=== PATIENT | male | born 1955 | race Caucasian/White ===

== ENCOUNTER → 2016-12-16 | Outpatient (CLI) | payer OTHER ==
[2016-12-16 17:30] LABS: BASO % 0.4 %; BASO ABS # 0.03 K/uL (0-0.2); COMPLETE YES; EOS % 1.9 %; HEMATOCRIT 46.6 % (42-52); IG% 0.1 %; LYMPH % 32.3 %; LYMPH ABS # 2.62 K/uL (1.2-3.4); MEAN CELL VOLUME 95.7 fL (80-100); MEAN CORPUSCULAR HEMOGLOBIN 33.1 pg (25-34); MEAN CORPUSCULAR HGB CONC 34.5 g/dl (32-36); MEAN PLATELET VOLUME 11.2 fL (7.4-10.4); MONO % 8.9 %; NEUT % 56.4 %; PLATELET COUNT 197 K/uL (130-400); RED BLOOD COUNT 4.87 M/uL (4.7-6.1)
[2016-12-16 18:11] LABS: ALT/SGPT 34 U/L (12-78); AST/SGOT 19 U/L (15-37); BLOOD UREA NITROGEN 22 mg/dl (7-18); BUN/CREATININE RATIO 18.2 (10-20); CALCIUM 8.8 mg/dl (8.5-10.1); CARBON DIOXIDE 31 mmol/L (21-32); CHLORIDE 103 mmol/L (98-107); CHOLESTEROL 144 mg/dl (0-200); GLUCOSE 92 mg/dl (70-99); POTASSIUM 4.3 mmol/L (3.5-5.1); SODIUM 142 mmol/L (136-145)
[2016-12-16 18:22] LABS: ALB/GLOB RATIO 1.2 (0.9-2); ALKALINE PHOSPHATASE 104 U/L (45-117); CHOLESTEROL/HDL RATIO 3.6; HDL CHOLESTEROL 40 mg/dl; LDL CHOLESTEROL CALCULATED 64 mg/dl; TRIGLYCERIDES 201 mg/dl (0-150); VERY LOW DENSITY LIPOPROT CALC 40 mg/dl
== END | disposition home or self-care (01) ==
LOC: C.LABPBG 12:55
PROVIDERS: ATTEND Family Medicine
DX: J44.1 Chronic obstructive pulmonary disease with (acute) exacerbation (principal)

== ENCOUNTER → 2017-09-11 | Outpatient (CLI) | payer OTHER ==
[2017-09-11 12:24] LABS: HEMATOCRIT 50.1 % (42-52); MEAN CELL VOLUME 95.8 fL (80-100); MEAN CORPUSCULAR HEMOGLOBIN 33.1 pg (25-34); MEAN CORPUSCULAR HGB CONC 34.5 g/dl (32-36); MEAN PLATELET VOLUME 10.9 fL (7.4-10.4); PLATELET COUNT 213 K/uL (130-400); RED BLOOD COUNT 5.23 M/uL (4.7-6.1); WHITE BLOOD COUNT 7.66 K/uL (4.8-10.8)
[2017-09-11 13:11] LABS: LYME DISEASE AB IGG NEG (NEG); LYME DISEASE AB IGM NEG (NEG)
[2017-09-11 13:41] LABS: ALB/GLOB RATIO 0.9 (0.9-2); ALKALINE PHOSPHATASE 97 U/L (45-117); ALT/SGPT 26 U/L (12-78); AST/SGOT 18 U/L (15-37); BLOOD UREA NITROGEN 19 mg/dl (7-18); CALCIUM 8.7 mg/dl (8.5-10.1); CARBON DIOXIDE 30 mmol/L (21-32); CHLORIDE 103 mmol/L (98-107); CHOLESTEROL 146 mg/dl (0-200); CHOLESTEROL/HDL RATIO 3.7; GLUCOSE 101 mg/dl (70-99); HDL CHOLESTEROL 40 mg/dl; LDL CHOLESTEROL CALCULATED 70 mg/dl; SODIUM 139 mmol/L (136-145); TRIGLYCERIDES 179 mg/dl (0-150); VERY LOW DENSITY LIPOPROT CALC 36 mg/dl
== END | disposition home or self-care (01) ==
LOC: C.LABPBG 08:55
PROVIDERS: ATTEND Family Medicine
DX: J44.1 Chronic obstructive pulmonary disease with (acute) exacerbation (principal); E78.00 Pure hypercholesterolemia, unspecified; R53.81 Other malaise; Z12.5 Encounter for screening for malignant neoplasm of prostate; S30.860A Insect bite (nonvenomous) of lower back and pelvis, initial encounter; X58.XXXA Exposure to other specified factors, initial encounter

== ENCOUNTER 2021-12-03 01:51 | Inpatient (IN) ==
[2021-12-03] MEDS ORDERED: dexAMETHasone**PF** 10 MG/ML VIAL IV ONE (01:59)
--- NOTE | 2021-12-03 02:05 | Emergency Department Note ---
History of Present Illness General Chief complaint: Shortness of Breath/Dyspnea Stated complaint: SOB Time Seen by Provider: 12/03/21 01:59 History of Present Illness 66-year-old male presents emergency department via EMS reportedly with a complaint of shortness of breath that started a few days ago. Patient has a history of COPD he is a prior smoker states that he wears 4 L of oxygen at home. Patient called EMS due to increased work of breathing. Patient states that he was at [facility] 2 days ago and he states "" they did nothing. Patient does not know if he is COVID-positive, he is unvaccinated, he states cough shortness of breath dyspnea on exertion. There are no other mitigating or alleviating factors Home Medications Medication Instructions Recorded Confirmed Type albuterol sulfate 90 mcg/actuation 2 puff INHALATION QID PRN 12/03/21 12/03/21 History aerosol inhaler amlodipine 10 mg tablet 10 mg PO DAILY 12/03/21 12/03/21 History dexamethasone 2 mg tablet 6 mg PO DAILY 12/03/21 12/03/21 History fluticasone 100 mcg-salmeterol 50 1 ea INHALATION BID 12/03/21 12/03/21 History mcg/dose blistr powdr for inhalation hydrocodone 10 mg-acetaminophen 1 tab PO TID PRN 12/03/21 12/03/21 History 325 mg tablet losartan 100 mg tablet 100 mg PO DAILY 12/03/21 12/03/21 History omeprazole 40 mg capsule,delayed 40 mg PO DAILY 12/03/21 12/03/21 History release Allergies Allergy/AdvReac Type Severity Reaction Status Date / Time Penicillins Allergy Severe Anaphylaxis Verified 12/03/21 02:08 Past Med/Surg History Social History Smoking Status: Former smoker Tobacco Type: Cigarettes Feels Safe at Home: Yes Review of Systems A total of 10 systems reviewed and were otherwise negative Constitutional: no body aches Respiratory: + dyspnea Cardiovascular: + dyspnea Physical Exam Vital Signs Vital Signs - 24 hr 12/03/21 02:07 12/03/21 03:24 12/03/21 04:36 Temperature 36.8 C Temperature Source Oral Pulse Rate 116 H Pulse Rate [Right] 112 H 112 H Pulse Rhythm Regular Pulse Rhythm [Right] Regular Pulse Strength Normal Pulse Strength [Right] Normal Respiratory Rate 16 Respiratory Effort / Characteristics Non-Labored Spontaneous Non-Labored Spontaneous Non-Labored Spontaneous Respiratory Depth Normal Normal Normal Blood Pressure 141/101 H Blood Pressure [Right Arm] 164/114 H 138/106 H Blood Pressure Mean 114 Blood Pressure Mean [Right Arm] 130 116 Blood Pressure Position Sitting Blood Pressure Position [Right Arm] Lying Pulse Oximetry 94 94 92 Oxygen Delivery Method Nasal Cannula Nasal Cannula Nasal Cannula Oxygen Flow Rate 4 4 4 Sepsis Recent Fever Within 48 Hours No Sepsis New/Unexplained Change in Mental Status N/A Sepsis Action Taken by Nursing Physician Notified VITAL SIGNS - Vital signs and nursing notes were reviewed. GENERAL -66-year-old male appearing his stated age who is in no acute distress. Communicates well with provider and answers questions appropriately. SKIN - Without rashes. HEAD - NC/AT. EYES - PERRL with EOMI bilaterally. Sclera anicteric. Palpebral conjunctiva pink and moist with no injection noted. EARS - No deformities of external structures noted on gross examination bilaterally. NOSE - Midline and without cyanosis. No epistaxis or purulent drainage noted. Septum midline without deviation or septal hematoma noted. MOUTH/OROPHARYNX - Without perioral cyanosis. NECK - Neck with FROM. Supple to palpation. No nuchal rigidity. LUNGS - Chest wall symmetric without accessory muscle use, intercostals retractions, or central cyanosis. Rhonchi bilaterally, increased respiratory rate; able to speak in full sentences CARDIAC -tachycardic no murmur, rubs, or gallops appreciated. ABDOMEN - Abdominal contour soft without pulsations or visible masses. BS normoactive all four quadrants. No tenderness, palpable masses, hepa tosplenomegaly, or ascites noted. EXTREMITIES - No clubbing or peripheral cyanosis. Bilateral lower extremity edema, calves are nontender. +5/5 strength noted in UE/LE bilaterally. NEUROLOGIC - Cranial nerves II through XII grossly intact. Sensory intact to light touch throughout. PSYCH - A&Ox3 and cooperates fully with examiner. Pt is very pleasant and interacts well with examiner. Course Reevaluation(s) Reevaluation #1: Patient was started on oxygen at 4 L, IV Decadron, patient's COVID positive, patient CT angio was negative for PE. The case was discussed with the [facility] hospitalist Dr. Bush for admit Administered Medications Discontinued Medications Dexamethasone Sodium Phosphate (DexamethasonePf 10 Mg/Ml Vial) 10 mg IV NOW ONE Stop: 12/03/21 02:00 Last Admin: 12/03/21 02:30 Dose: 10 mg Documented by: [id number] Ioversol (Optiray 320 125ml) 117 ml IV ONCE ONE Stop: 12/03/21 03:17 Last Admin: 12/03/21 03:16 Dose: 117 ml Documented by: [id number] Critical Care Time Critical Care Time: Yes Total Critical Care Time: 35 Critical care time for patient with hypoxic COVID-pneumonia with multiple reevaluations, discussion with hospitalist, discussion with nursing, review of old records, possibility for impending cardiorespiratory compromise Medical Decision Making Medical Records Attestation: I reviewed the patient's medical records. Laboratory Data Result diagrams: 12/03/21 02:01 12/03/21 02:01 Lab Results 12/03/21 12/03/21 12/03/21 Range/Units 02:01 02:01 02:01 WBC 19.21 H (4.8-10.8) K/uL RBC 5.26 (4.7-6.1) M/uL Hgb 15.9 (14.0-18.0) g/dL Hct 47.4 (42-52) % MCV 90.1 (80-100) fL MCH 30.2 (25-34) pg MCHC 33.5 (32-36) g/dL RDW Std Deviation 48.5 H (36.4-46.3) fL RDW Coeff of Severino 14.8 H (11.5-14.5) % Plt Count 361 (130-400) K/uL MPV 9.5 (7.4-10.4) fL Immature Gran % (Auto) 0.4 % Neut % (Auto) 81.2 % Lymph % (Auto) 11.1 % [place] % (Auto) 7.2 % Eos % (Auto) 0.0 % Baso % (Auto) 0.1 % Neut # (Auto) 15.59 H (1.4-6.5) K/uL Lymph # (Auto) 2.13 (1.2-3.4) K/uL [place] # (Auto) 1.39 H (0.11-0.59) K/uL Eos # (Auto) 0.00 (0-0.5) K/uL Baso # (Auto) 0.02 (0-0.2) K/uL Immature Gran # (Auto) 0.08 H (0.00-0.02) K/uL PT 10.5 (9.0-12.0) Seconds INR 1.0 (0.9-1.1) APTT 23.4 (21.0-31.0) Seconds PTT Ratio 0.9 D-Dimer 2440 H* (0-500) ug/L FEU VBG pH (7.36-7.41) VBG pCO2 (38-50) mmHg VBG pO2 mmHg VBG HCO3 mmol/L VBG O2 Saturation % VBG Base Excess mEq/L Barometric Pressure mm/Hg Sodium 136 (136-145) mmol/L Potassium 4.8 (3.5-5.1) mmol/L Chloride 100 (98-107) mmol/L Carbon Dioxide 25 (21-32) mmol/L Anion Gap 11 (3-11) BUN 37 H (6-23) mg/dl Creatinine 1.02 (0.6-1.4) mg/dl Est Cr Clr Drug Dosing 82.7 ml/min Est GFR ( Amer) 89.6 ml/min Est GFR (Non-Af Amer) 77.3 ml/min BUN/Creatinine Ratio 36.3 H (10-20) Glucose 119 H (70-99(Fasting)) mg/dl Calcium 8.8 (8.5-10.1) mg/dl Total Bilirubin 0.7 (0.2-1.0) mg/dl AST 91 H (13-39) U/L ALT 106 H (7-52) U/L Alkaline Phosphatase 149 H (34-104) U/L Troponin I 0.03 (0-0.04) ng/ml Total Protein 7.8 (6.0-8.3) gm/dl Albumin 3.8 (3.4-5.0) gm/dl Globulin 4.0 (2.5-4.0) gm/dl Albumin/Globulin Ratio 1.0 (0.9-2) Urine Color Urine Appearance (Clear) Urine pH (4.5-7.5) Ur Specific [place] (1.000-1.030) Urine Protein (Negative) Urine Glucose (UA) (Negative) Urine Ketones (Negative) Urine Blood (Negative) Urine Nitrite (Negative) Urine Bilirubin (Negative) Urine Urobilinogen (Negative) Ur Leukocyte Esterase (Negative) Urine WBC (Auto) (0-5) /hpf Urine RBC (Auto) (0-4) /hpf U Hyaline Cast (Auto) (0-5) /lpf U Epithel Cells (Auto) (0-5) /lpf Urine Bacteria (Auto) (Negative) SARS-CoV-2 (PCR) (Negative) Influenza Type A (PCR) (Neg) Influenza Type B (PCR) (Neg) RSV (RT-PCR) (Neg) 12/03/21 12/03/21 12/03/21 Range/Units 02:01 02:42 03:34 WBC (4.8-10.8) K/uL RBC (4.7-6.1) M/uL Hgb (14.0-18.0) g/dL Hct (42-52) % MCV (80-100) fL MCH (25-34) pg MCHC (32-36) g/dL RDW Std Deviation (36.4-46.3) fL RDW Coeff of Severino (11.5-14.5) % Plt Count (130-400) K/uL MPV (7.4-10.4) fL Immature Gran % (Auto) % Neut % (Auto) % Lymph % (Auto) % [place] % (Auto) % Eos % (Auto) % Baso % (Auto) % Neut # (Auto) (1.4-6.5) K/uL Lymph # (Auto) (1.2-3.4) K/uL [place] # (Auto) (0.11-0.59) K/uL Eos # (Auto) (0-0.5) K/uL Baso # (Auto) (0-0.2) K/uL Immature Gran # (Auto) (0.00-0.02) K/uL PT (9.0-12.0) Seconds INR (0.9-1.1) APTT (21.0-31.0) Seconds PTT Ratio D-Dimer (0-500) ug/L FEU VBG pH 7.44 H (7.36-7.41) VBG pCO2 46 (38-50) mmHg VBG pO2 25 mmHg VBG HCO3 31 mmol/L VBG O2 Saturation < 60.0 % VBG Base Excess 5.9 mEq/L Barometric Pressure 709.3 mm/Hg Sodium (136-145) mmol/L Potassium (3.5-5.1) mmol/L Chloride (98-107) mmol/L Carbon Dioxide (21-32) mmol/L Anion Gap (3-11) BUN (6-23) mg/dl Creatinine (0.6-1.4) mg/dl Est Cr Clr Drug Dosing ml/min Est GFR ( Amer) ml/min Est GFR (Non-Af Amer) ml/min BUN/Creatinine Ratio (10-20) Glucose (70-99(Fasting)) mg/dl Calcium (8.5-10.1) mg/dl Total Bilirubin (0.2-1.0) mg/dl AST (13-39) U/L ALT (7-52) U/L Alkaline Phosphatase (34-104) U/L Troponin I (0-0.04) ng/ml Total Protein (6.0-8.3) gm/dl Albumin (3.4-5.0) gm/dl Globulin (2.5-4.0) gm/dl Albumin/Globulin Ratio (0.9-2) Urine Color Yellow Urine Appearance Clear (Clear) Urine pH 5.5 (4.5-7.5) Ur Specific [place] 1.035 H (1.000-1.030) Urine Protein 2+ H (Negative) Urine Glucose (UA) Negative (Negative) Urine Ketones Trace H (Negative) Urine Blood 1+ H (Negative) Urine Nitrite Negative (Negative) Urine Bilirubin Negative (Negative) Urine Urobilinogen Negative (Negative) Ur Leukocyte Esterase Negative (Negative) Urine WBC (Auto) 1-5 (0-5) /hpf Urine RBC (Auto) 0-4 (0-4) /hpf U Hyaline Cast (Auto) 5-10 H (0-5) /lpf U Epithel Cells (Auto) 10-20 H (0-5) /lpf Urine Bacteria (Auto) Negative (Negative) SARS-CoV-2 (PCR) POSITIVE A* (Negative) Influenza Type A (PCR) Negative (Neg) Influenza Type B (PCR) Negative (Neg) RSV (RT-PCR) Negative (Neg) Imaging Data Attestation: I personally reviewed and interpreted this imaging study as follows: My Impression: Chest x-ray interpreted by me bilateral interstitial infiltrates Radiologist's Impression: Preliminary Findings Only See Final Report For Complete Findings CTA CHEST: Innumerable nodules within the lungs (more than 50) which may be due to sequela of metastatic disease. Sequela of infection also possible. Consider PET imaging or tissue sampling. Respiratory motion affect mildly limits evaluation for small subsegmental emboli. In spite of this, no visualized pulmonary emboli within the pulmonary outflow tract or proximal vessels. Pericardial effusion measuring up to 0.7 cm in thickness. Left adrenal nodule is really up to 2.0 cm which may be also metastatic in nature. ECG Data Attestation: I personally reviewed and interpreted this ECG as follows: Additional Comments: EKG interpreted by me sinus tachycardia rate of 118 poor R wave progression in the precordium no obvious ST segment elevation or depression MDM Narrative Medical decision making differential diagnosis pneumonia COPD COVID CHF anxiety Impression & Plan Pneumonia due to COVID-19 virus, Hypoxia Discharge Plan Visit Data Chief Complaint: Shortness of Breath/Dyspnea Stated Complaint: SOB ED Provider: Abdias Larson Discharge Problem: Pneumonia due to COVID-19 virus, Hypoxia Patient Disposition: Being Evaluated by Hospitalist Forms Stand Alone Forms: My [facility] Prescriptions Prescriptions: No Action hydrocodone-acetaminophen 10-325 mg tablet 1 tab PO TID PRN (Reason: Pain) RF: 0 omeprazole 40 mg capsule,delayed release(DR/EC) 40 mg PO DAILY RF: 0 amlodipine 10 mg tablet 10 mg PO DAILY RF: 0 dexamethasone 2 mg tablet 6 mg PO DAILY RF: 0 fluticasone propion-salmeterol 100-50 mcg/dose blister with device 1 ea INHALATION BID RF: 0 albuterol sulfate 90 mcg/actuation HFA aerosol inhaler 2 puff INHALATION QID PRN (Reason: Shortness Of Breath Or Wheezing) RF: 0 losartan 100 mg tablet 100 mg PO DAILY RF: 0 Referrals Referrals: Avery Seay [Primary Care Provider] -
[2021-12-03 02:10] LABS: Hematocrit (blood only) 47.4 % (42-52); Hemoglobin 15.9 g/dL (14.0-18.0); Mean Corpuscular Hemoglobin 30.2 pg (25-34); Mean Corpuscular Hgb Conc 33.5 g/dL (32-36); Mean Corpuscular Volume 90.1 fL (80-100); Mean Platelet Volume 9.5 fL (7.4-10.4); Platelet Count 361 K/uL (130-400); RDW Coefficient of Variation 14.8 % (11.5-14.5); RDW Standard Deviation 48.5 fL (36.4-46.3); Red Blood Count 5.26 M/uL (4.7-6.1); White Blood Count 19.21 K/uL (4.8-10.8)
[2021-12-03 02:21] LABS: Partial Thromboplastin Ratio 0.9; Partial Thromboplastin Time 23.4 Seconds (21.0-31.0); Prothrombin Time 10.5 Seconds (9.0-12.0)
[2021-12-03 02:23] LABS: D Dimer 2440 ug/L FEU (0-500)
[2021-12-03 02:26] LABS: Basophils # (auto) 0.02 K/uL (0-0.2); Basophils % (auto) 0.1 %; Immature Granulocytes # (auto) 0.08 K/uL (0.00-0.02); Immature Granulocytes % (auto) 0.4 %; Lymphocytes # (auto) 2.13 K/uL (1.2-3.4); Lymphocytes % (auto) 11.1 %; Monocytes # (auto) 1.39 K/uL (0.11-0.59); Monocytes % (auto) 7.2 %; Neutrophils # (auto) 15.59 K/uL (1.4-6.5); Neutrophils % (auto) 81.2 %
[2021-12-03 02:32] LABS: Troponin I 0.03 ng/ml (0-0.04)
[2021-12-03 02:39] LABS: Albumin Level 3.8 gm/dl (3.4-5.0); BUN Creatinine Ratio 36.3 (10-20); Bilirubin,Total 0.7 mg/dl (0.2-1.0); Calcium 8.8 mg/dl (8.5-10.1); Creatinine Clr Calc Pharmacy 82.7 ml/min; Est GFR (African American) 89.6 ml/min; Est GFR (Non-African American) 77.3 ml/min; Potassium 4.8 mmol/L (3.5-5.1); Total Protein 7.8 gm/dl (6.0-8.3)
[2021-12-03 02:58] LABS: Base Excess VBG 5.9 mEq/L; HCO3 VBG 31 mmol/L; PCO2 VBG 46 mmHg (38-50); PO2 VBG 25 mmHg; pH VBG 7.44 (7.36-7.41)
[2021-12-03 02:58] LABS: Influenza A virus by PCR Negative (Neg); Influenza B virus by PCR Negative (Neg); RSV by PCR Negative (Neg)
[2021-12-03 03:07] LABS: Oxygen Saturation VBG < 60.0 %
[2021-12-03 03:09] LABS: SARS CoV2 RNA(COVID-19) InHosp POSITIVE (Negative)
[2021-12-03] MEDS ORDERED: OPTIRAY 320 125ml IV ONE (03:16)
[2021-12-03 04:01] LABS: Appearance Urine Clear (Clear); Bacteria Urine Automated Negative (Negative); Bilirubin Urine Negative (Negative); Blood Urine 1+ (Negative); Color Urine Yellow; Glucose Urine UA Negative (Negative); Ketones Urine Trace (Negative); Leukocyte Esterase Urine Negative (Negative); Nitrite Urine Negative (Negative); Protein Urine 2+ (Negative); RBC Urine Automated 0-4 /hpf (0-4); Specific Gravity Urine 1.035 (1.000-1.030); Urobilinogen Urine Negative (Negative); pH Urine 5.5 (4.5-7.5)
[2021-12-03] MEDS ORDERED: REMDESIVIR 200 MG in SODIUM CHLORIDE 0.9% 210 ML IV STA (05:06)
--- NOTE | 2021-12-03 05:22 | History & Physical Report ---
Date of Service December 03, 2021 Assessment & Plan (1) Pneumonia due to COVID-19 virus: Plan: 66yo male with history of COPD presenting with Covid-19 PNA, hypoxic per EMS to 80's. Patient wears 4L O2 at home at baseline. He is unvaccinated against Covid-19 -Presently breathing comfortably on 4L NC with saturation of 92%. Patient had a prescription for oral Dexamethasone in the system - uncertain who prescribed this -Admit to medical with telemetry -Maintain isolation precautions -Dexamethasone 6mg IV daily -Lovenox 90mg BID -Remdesivir per protocol -Mucinex, Tylenol, Zofran, Tessalon as needed -Supplemental O2 as needed (2) Pulmonary nodules: Plan: Noted on CTA. Patient has no knowledge of prior pulmonary nodules. I told him that further workup will be needed after the acute issues resolve -Outpatient workup (3) Pericardial effusion: Plan: Patient HD stable, no JVD, normal heart tones. Do not suspect tamponade. Possibly malignant? Question if patient has newly discovered metastatic disease based on lung nodules and adrenal nodule? -Monitor for now -Further workup after acute Covid resolves (4) COPD (chronic obstructive pulmonary disease): Plan: Patient with COPD, on home O2 4L at baseline. Some mild wheezing appreciated on exam -Albuterol PRN -Combivent PRN -Steroids as above (5) Hypertension: Plan: Chronic. BP mildly elevated at 138/106 -Continue Losartan and Amlodipine Plan: F/E/N - Heplock. Electrolytes WNL. Regular diet as tolerated Ppx - Lovenox 90 BID - patient with Covid-19, possible undiagnosed malignancy and markedly elevated D-dimer Code - DNR/DNI per discussion Dispo - Admit to medical with telemetry History of Present Illness Chief Complaint: Covid-19 Primary Care Provider: Avery Seay Travis Shay is a 66yo male with history of HTN and COPD presenting with Covid-19 PNA. Patient states he has not been feeling well for the last week. He complains of cough, SOB, AGUIRRE, weakness, congestion. He denies fever, abdominal pain, nausea, vomiting, diarrhea or constipation. Patient uses 4L of O2 at home as baseline Patient is not vaccinated against Covid-19 He was seen at [facility] yesterday and states that he was treated poorly so he left. Uncertain if workup was complete. Patient hypoxic by EMS to 80's Presently he is tearful and anxious stating "I don't want to ...I wish I co uld just breathe". He has no additional complaints. Tachycardic and hypertensive, saturating 92% presently on 4L NC ER Course: Dexamethasone 10mg IV Allergies Allergy/AdvReac Type Severity Reaction Status Date / Time Penicillins Allergy Severe Anaphylaxis Verified 12/03/21 02:08 Home Medications Medication Instructions Recorded Confirmed Type albuterol sulfate 90 mcg/actuation 2 puff INHALATION QID PRN 12/03/21 12/03/21 History aerosol inhaler amlodipine 10 mg tablet 10 mg PO DAILY 12/03/21 12/03/21 History dexamethasone 2 mg tablet 6 mg PO DAILY 12/03/21 12/03/21 History fluticasone 100 mcg-salmeterol 50 1 ea INHALATION BID 12/03/21 12/03/21 History mcg/dose blistr powdr for inhalation hydrocodone 10 mg-acetaminophen 1 tab PO TID PRN 12/03/21 12/03/21 History 325 mg tablet losartan 100 mg tablet 100 mg PO DAILY 12/03/21 12/03/21 History omeprazole 40 mg capsule,delayed 40 mg PO DAILY 12/03/21 12/03/21 History release Past Med/Surg History Medical History (Updated 12/03/21 @ 05:15 by Christine Bush DO) COPD (chronic obstructive pulmonary disease) Hypertension Surgical History (Updated 12/03/21 @ 05:11 by Christine Bush DO) No significant past surgical history Family History (Updated 12/03/21 @ 05:11 by Christine Bush DO) Other Family history non-contributory Social History Smoking Status: Former smoker Tobacco Type: Cigarettes Feels Safe at Home: Yes Review of Systems Review of Systems: All systems reviewed & are unremarkable except as noted in HPI & below Physical Exam Physical Exam: General: patient anxious, NAD, chronically ill in appearance, AA&O x 4, appears older than stated age Skin: warm, dry, intact, no rashes or lesions HEENT: NC/AT, PERRL, EOMI, anicteric sclera, conjunctiva without injection, external ear normal to inspection and nontender, nares patent, moist mucus membranes, dentition intact, no oropharyngeal lesions, neck supple, trachea midline, no LAD, no thyromegaly, no JVD Heart: +S1/S2, regular, tachycardic, no m/r/g Lungs: equal air entry bilaterally, faint scattered end expiratory wheeze Abd: +BS, soft, midly tender with deep palpation without rebound/guarding or peritoneal signs, no masses/organomegaly/ascites Ext: warm, 2+ pulses in UE/LE bilaterally, no clubbing/cyanosis or edema Neuro: nonfocal, patient AA&O x 4, speech intact, no facial droop, moving all extremities on command with equal strength 5/5 Results & Data Results & Data ([facility]) Vital Signs (Past 12 Hours) Vital Signs Temp Pulse Pulse Resp BP BP Pulse Ox 12/03/21 04:36 112 H 16 138/106 H 92 12/03/21 03:24 112 H 22 164/114 H 94 12/03/21 02:07 36.8 C 116 H 22 141/101 H 94 Laboratory Results Laboratory Results WBC 19.21 K/uL (4.8-10.8) H 12/03/21 02:01 RBC 5.26 M/uL (4.7-6.1) 12/03/21 02:01 Hgb 15.9 g/dL (14.0-18.0) 12/03/21 02:01 Hct 47.4 % (42-52) 12/03/21 02:01 MCV 90.1 fL (80-100) 12/03/21 02:01 MCH 30.2 pg (25-34) 12/03/21 02:01 MCHC 33.5 g/dL (32-36) 12/03/21 02:01 RDW Std Deviation 48.5 fL (36.4-46.3) H 12/03/21 02:01 RDW Coeff of Severino 14.8 % (11.5-14.5) H 12/03/21 02:01 Plt Count 361 K/uL (130-400) 12/03/21 02:01 MPV 9.5 fL (7.4-10.4) 12/03/21 02:01 Immature Gran % (Auto) 0.4 % 12/03/21 02:01 Neut % (Auto) 81.2 % 12/03/21 02:01 Lymph % (Auto) 11.1 % 12/03/21 02:01 [place] % (Auto) 7.2 % 12/03/21 02:01 Eos % (Auto) 0.0 % 12/03/21 02:01 Baso % (Auto) 0.1 % 12/03/21 02:01 Neut # (Auto) 15.59 K/uL (1.4-6.5) H 12/03/21 02:01 Lymph # (Auto) 2.13 K/uL (1.2-3.4) 12/03/21 02:01 [place] # (Auto) 1.39 K/uL (0.11-0.59) H 12/03/21 02:01 Eos # (Auto) 0.00 K/uL (0-0.5) 12/03/21 02:01 Baso # (Auto) 0.02 K/uL (0-0.2) 12/03/21 02:01 Immature Gran # (Auto) 0.08 K/uL (0.00-0.02) H 12/03/21 02:01 PT 10.5 Seconds (9.0-12.0) 12/03/21 02:01 INR 1.0 (0.9-1.1) 12/03/21 02:01 APTT 23.4 Seconds (21.0-31.0) 12/03/21 02:01 PTT Ratio 0.9 12/03/21 02:01 D-Dimer 2440 ug/L FEU (0-500) H* 12/03/21 02:01 VBG pH 7.44 (7.36-7.41) H 12/03/21 02:42 VBG pCO2 46 mmHg (38-50) 12/03/21 02:42 VBG pO2 25 mmHg 12/03/21 02:42 VBG HCO3 31 mmol/L 12/03/21 02:42 VBG O2 Saturation < 60.0 % 12/03/21 02:42 VBG Base Excess 5.9 mEq/L 12/03/21 02:42 Barometric Pressure 709.3 mm/Hg 12/03/21 02:42 Sodium 136 mmol/L (136-145) 12/03/21 02:01 Potassium 4.8 mmol/L (3.5-5.1) 12/03/21 02:01 Chloride 100 mmol/L (98-107) 12/03/21 02:01 Carbon Dioxide 25 mmol/L (21-32) 12/03/21 02:01 Anion Gap 11 (3-11) 12/03/21 02:01 BUN 37 mg/dl (6-23) H 12/03/21 02:01 Creatinine 1.02 mg/dl (0.6-1.4) 12/03/21 02:01 Est Cr Clr Drug Dosing 82.7 ml/min 12/03/21 02:01 Est GFR ( Amer) 89.6 ml/min 12/03/21 02:01 Est GFR (Non-Af Amer) 77.3 ml/min 12/03/21 02:01 BUN/Creatinine Ratio 36.3 (10-20) H 12/03/21 02:01 Glucose 119 mg/dl (70-99(Fasting)) H 12/03/21 02:01 Calcium 8.8 mg/dl (8.5-10.1) 12/03/21 02:01 Total Bilirubin 0.7 mg/dl (0.2-1.0) 12/03/21 02:01 AST 91 U/L (13-39) H 12/03/21 02:01 ALT 106 U/L (7-52) H 12/03/21 02:01 Alkaline Phosphatase 149 U/L (34-104) H 12/03/21 02:01 Troponin I 0.03 ng/ml (0-0.04) 12/03/21 02:01 Total Protein 7.8 gm/dl (6.0-8.3) 12/03/21 02:01 Albumin 3.8 gm/dl (3.4-5.0) 12/03/21 02:01 Globulin 4.0 gm/dl (2.5-4.0) 12/03/21 02:01 Albumin/Globulin Ratio 1.0 (0.9-2) 12/03/21 02:01 Urine Color Yellow 12/03/21 03:34 Urine Appearance Clear (Clear) 12/03/21 03:34 Urine pH 5.5 (4.5-7.5) 12/03/21 03:34 Ur Specific [place] 1.035 (1.000-1.030) H 12/03/21 03:34 Urine Protein 2+ (Negative) H 12/03/21 03:34 Urine Glucose (UA) Negative (Negative) 12/03/21 03:34 Urine Ketones Trace (Negative) H 12/03/21 03:34 Urine Blood 1+ (Negative) H 12/03/21 03:34 Urine Nitrite Negative (Negative) 12/03/21 03:34 Urine Bilirubin Negative (Negative) 12/03/21 03:34 Urine Urobilinogen Negative (Negative) 12/03/21 03:34 Ur Leukocyte Esterase Negative (Negative) 12/03/21 03:34 Urine WBC (Auto) 1-5 /hpf (0-5) 12/03/21 03:34 Urine RBC (Auto) 0-4 /hpf (0-4) 12/03/21 03:34 U Hyaline Cast (Auto) 5-10 /lpf (0-5) H 12/03/21 03:34 U Epithel Cells (Auto) 10-20 /lpf (0-5) H 12/03/21 03:34 Urine Bacteria (Auto) Negative (Negative) 12/03/21 03:34 SARS-CoV-2 (PCR) POSITIVE (Negative) A* 12/03/21 02:01 Influenza Type A (PCR) Negative (Neg) 12/03/21 02:01 Influenza Type B (PCR) Negative (Neg) 12/03/21 02:01 RSV (RT-PCR) Negative (Neg) 12/03/21 02:01 Diagnostic Findings Chest CTA - Per STAT rad - Innumerable nodules within the lungs (more than 50) which may be due to sequela of metastatic disease. Sequela of infection also possible. Consider PET imaging or tissue sampling. No visualized pulmonary emboli within the pulmonary outflow tract or proximal vessels. Pericardial effusion measuring up to 0.7cm in thickness. Left adrenal nodule is really up to 2cm which may be also metastatic in nature. Code Status & VTE Plan Code Status DNR/DNI per discussion with patient VTE Prophylaxis Plan VTE Prophylaxis will be ordered: Yes PG Care Time/CCT Total # of Minutes Spent Total Time Spent with Patient: Total time spent is greater than 50% in coordination of care (as documented) at patient's floor/unit and/or counseling patient: Coding Level of Care Code 85059 Initial Inpt Care Lvl 3 Diagnoses Pulmonary nodules R91.8 Hypertension I10 COPD (chronic obstructive pulmonary disease) J44.9 Pneumonia due to COVID-19 virus U07.1; J12.82 Pericardial effusion I31.3
--- NOTE | 2021-12-03 07:43 | XRay Report ---
XR chest 1V portable CLINICAL HISTORY: Dyspnea TECHNIQUE: Single frontal radiograph of the chest was obtained. Comparison: None available at the time of this dictation. FINDINGS: No lines and tubes are seen. The cardiomediastinal silhouette is normal. Bilateral lower lung predomi nant airspace opacities are seen. No evidence of pleural effusion or pneumothorax. IMPRESSION: Bilateral lower lung predominant airspace opacities which may represent atelectasis, pneumonia, and/o r aspiration. ACT 112: Negative or not required by law. Electronically signed by: Flako Evangelista M.D. 12/03/2021 7:42 AM
--- NOTE | 2021-12-03 07:49 | CT Scan Report ---
CT angio chest PE protocol CLINICAL HISTORY: PE TECHNIQUE: Multidetector row helical CT of the chest was performed. Coronal and sagittal reformations were obtained. Coronal and sagittal MIPS were obtained from the axial data set and were submitted fo r review. Automated dose lowering techniques and/or adjustment according to patient size were utiliz ed for this exam. Comparison: Comparison is made to chest one view 12/03/2021 FINDINGS: Lungs and pleura: There are innumerable pulmonary nodules bilaterally. Emphysematous changes are seen . Bronchial wall thickening is noted. Heart and pericardium: Heart size is normal. No pericardial effusion. Vessels: No evidence of pulmonary embolism. Moderate atherosclerotic disease is seen. Mediastinum and tina: Unremarkable. Chest wall and lower neck: Unremarkable. Abdomen: Ill-defined hepatic hypodensity is seen measuring approximately 9 cm in diameter. Cholelithi asis is seen without evidence of cholecystitis. There is a left adrenal nodule measuring approximatel y 2 cm in diameter. Bones: Degenerative changes in the thoracic spine. IMPRESSION: 1. No evidence of pulmonary embolism. 2. Numerous pulmonary nodules and soft tissue lesions in the liver left adrenal gland. Findings are concerning for metastatic disease of unknown primary. If not previously evaluated, PET/CT or tissue s ampling can be considered. ACT 112: Negative or not required by law. Electronically signed by: Flako Evangelista M.D. 12/03/2021 7:48 AM
--- NOTE | 2021-12-03 08:50 | Electrocardiogram Report ---
Test Reason : Blood Pressure : / mmHG Vent. Rate : 118 BPM Atrial Rate : 118 BPM P-R Int : 158 ms QRS Dur : 074 ms QT Int : 306 ms P-R-T Axes : 069 045 069 degrees QTc Int : 428 ms Sinus tachycardia Normal ECG No previous ECGs available Confirmed by Avery Andujar ([id number]) on 12/03/2021 8:49:53 AM Referred By: REFERRED SELF Confirmed By:Avery Andujar
[2021-12-03] MEDS ORDERED: IPRATROPIUM BROMIDE/ALBUTEROL respimat INH INH SCH (09:38)
[2021-12-03] MEDS ORDERED: ONDANSETRON INJ 2 MG/ML 2 ML VIAL IV PRN (09:38)
[2021-12-03] MEDS ORDERED: ACETAMINOPHEN 325 MG TAB PO PRN (09:38)
[2021-12-03] MEDS ORDERED: SODIUM CHLORIDE 0.9% 10ML FLUSH IV SCH (09:38)
[2021-12-03] MEDS ORDERED: ENOXAPARIN 100 MG/1ML SYR SQ SCH (10:15)
[2021-12-03 10:54] LABS: Magnesium 2.3 mg/dl (1.7-2.4)
[2021-12-03 11:17] LABS: Fibrinogen 417 mg/dl (184-400)
[2021-12-03 11:32] LABS: Ferritin 657.3 ng/ml (8-388)
[2021-12-03] MEDS: BENZONATATE 100 MG CAPSULE PO SCH ×3 (11:58→20:15)
[2021-12-03] MEDS: hydrOXYzine HCl 25 MG TAB PO PRN ×2 (11:58→20:15)
[2021-12-03] MEDS: FAMOTIDINE 40 MG TABLET PO SCH (11:59)
[2021-12-03] MEDS: LOSARTAN POTASSIUM 50 MG TAB PO SCH (11:59)
[2021-12-03] MEDS: guaiFENesin 600 MG TABCR PO SCH ×2 (11:59→20:15)
[2021-12-03 12:54] LABS: C Reactive Protein 2.37 mg/dl (0-0.5)
[2021-12-03] MEDS: amLODIPine BESYLATE 5 MG TAB PO SCH (13:16)
--- NOTE | 2021-12-03 13:38 | History & Physical Bridge Note ---
Date of Service December 03, 2021 History & Physical Bridge Note I have examined the patient, reviewed the History & Physical and in the interval since the performance of the History & Physical I have noted the following changes of clinical significance: no changes noted 66yo w/ hx of COPD presenting with Covid-19 pneumonia x 10 days of symptoms. Had some anxiety, now improved with hydroxyzine. First symptoms: 11/23/2021 First tested: 12/03/2021 Vaccinated: No Admission date: 12/03/2021 Admission O2 requirement: 6L (from home 4L NC) Admission CRP: 2.4 Dexamethasone course started: 12/03/2021; End date: 12/12/2021 Remdesivir contraindication: >7 days since symptom onset Tocilizumab/baricitinib contraindication: No need for high-flow oxygen Antibiotics: No lobar pneumonia on CTA on 12/03; procalcitonin normal - None DVT ppx: Lovenox 40 mg SQ daily Breathing treatments: Combivent standing & PRN, Wan Iglesias Presently requiring 6L Oxymask
[2021-12-03] MEDS: IPRATROPIUM BROMIDE HFA INHALER INH SCH ×3 (15:51→19:15)
[2021-12-03] MEDS: ALBUTEROL HFA 8 GM INHALER INH SCH ×3 (15:52→19:15)
[2021-12-04] MEDS: dexAMETHasone 6 MG in SYRINGE 0 ML IV SCH (02:20)
[2021-12-04] MEDS: ALBUTEROL HFA 8 GM INHALER INH SCH (07:28)
[2021-12-04] MEDS: IPRATROPIUM BROMIDE HFA INHALER INH SCH (07:28)
[2021-12-04 07:33] LABS: Basophils # (auto) 0.01 K/uL (0-0.2); Basophils % (auto) 0.1 %; Hematocrit (blood only) 43.2 % (42-52); Hemoglobin 13.9 g/dL (14.0-18.0); Immature Granulocytes # (auto) 0.06 K/uL (0.00-0.02); Immature Granulocytes % (auto) 0.4 %; Lymphocytes # (auto) 1.06 K/uL (1.2-3.4); Lymphocytes % (auto) 7.1 %; Mean Corpuscular Hemoglobin 29.8 pg (25-34); Mean Corpuscular Hgb Conc 32.2 g/dL (32-36); Mean Corpuscular Volume 92.7 fL (80-100); Mean Platelet Volume 9.8 fL (7.4-10.4); Monocytes # (auto) 0.51 K/uL (0.11-0.59); Monocytes % (auto) 3.4 %; Neutrophils # (auto) 13.31 K/uL (1.4-6.5); Platelet Count 415 K/uL (130-400); RDW Coefficient of Variation 15.1 % (11.5-14.5); RDW Standard Deviation 50.9 fL (36.4-46.3); Red Blood Count 4.66 M/uL (4.7-6.1); White Blood Count 14.95 K/uL (4.8-10.8)
[2021-12-04 07:56] LABS: Albumin Level 3.3 gm/dl (3.4-5.0); BUN Creatinine Ratio 33.3 (10-20); Bilirubin Direct 0.1 mg/dl (0-0.2); Bilirubin,Total 0.6 mg/dl (0.2-1.0); Calcium 8.3 mg/dl (8.5-10.1); Creatinine Clr Calc Pharmacy 85.2 ml/min; Est GFR (African American) 92.9 ml/min; Est GFR (Non-African American) 80.2 ml/min; Potassium 4.4 mmol/L (3.5-5.1); Total Protein 6.6 gm/dl (6.0-8.3)
[2021-12-04] MEDS: amLODIPine BESYLATE 5 MG TAB PO SCH (08:13)
[2021-12-04] MEDS: BENZONATATE 100 MG CAPSULE PO SCH ×3 (08:13→20:09)
[2021-12-04] MEDS: ENOXAPARIN INJ 40 MG/0.4 ML SYR SQ SCH (08:14)
[2021-12-04] MEDS: FAMOTIDINE 40 MG TABLET PO SCH (08:14)
[2021-12-04] MEDS: guaiFENesin 600 MG TABCR PO SCH ×2 (08:14→20:10)
[2021-12-04] MEDS: LOSARTAN POTASSIUM 50 MG TAB PO SCH (08:16)
[2021-12-04] MEDS ORDERED: IPRATROPIUM BROMIDE HFA INHALER INH PRN (09:21)
[2021-12-04] MEDS: ALBUTEROL HFA 8 GM INHALER INH PRN (10:05)
[2021-12-04] MEDS ORDERED: REMDESIVIR 100 MG in SODIUM CHLORIDE 0.9% 230 ML IV SCH (12:00)
--- NOTE | 2021-12-04 12:50 | Hospitalist Progress Note ---
Date of Service December 04, 2021 Assessment & Plan (1) Pneumonia due to COVID-19 virus: Plan: First symptoms: 11/23/2021 First tested: 12/03/2021 Vaccinated: No Admission date: 12/03/2021 Admission O2 requirement: 6L (from home 4L NC) Admission CRP: 2.4 Dexamethasone course started: 12/03/2021; End date: 12/12/2021 Remdesivir contraindication: >7 days since symptom onset Tocilizumab/baricitinib contraindication: No need for high-flow oxygen Antibiotics: No lobar pneumonia on CTA on 12/03; procalcitonin normal - None DVT ppx: Lovenox 40 mg SQ daily Breathing treatments: Combivent PRN, Tessalon Perles, guaifenasin Presently requiring 5L Oxymask. (2) Pulmonary nodules: Plan: Noted on CTA. Many nodules concerning for metastases. Patient has no knowledge of prior pulmonary nodules. I told him that further workup will be needed after the acute issues resolve. - Outpatient workup (3) Pericardial effusion: Plan: Patient HD stable, no JVD, normal heart tones. Do not suspect tamponade. Possibly malignant? Question if patient has newly discovered metastatic disease based on lung nodules and adrenal nodule? - Monitor for now - Further workup after acute Covid resolves (4) COPD (chronic obstructive pulmonary disease): Plan: Patient with COPD, on home O2 4L at baseline. No wheezing appreciated on exam today. - Albuterol PRN - Combivent PRN - Steroids as above (5) Hypertension: Plan: Chronic. BP today is 105/75. - Continue losartan and amlodipine Admission and Anticipated Discharge Date Admission Date: December 03, 2021 Subjective Super sleepy today because he was up all night with agitation. Will wake up and follow some directions, but doesn't answer any questions. Review of Systems Review of Systems: Unobtainable due to cognitive status and Unobtainable due to reduced consciousness Physical Exam Constitutional: WD/WN, vitals as above + lethargic Eyes: EOM intact bilaterally; no conjunctival abnormality ENMT: external ear and nose normal, oropharynx normal Neck: trachea midline, no thyromegaly normal visual inspection Respiratory: normal respiratory effort, lungs clear to auscultation no respiratory distress Cardiovascular: RRR, no murmur, no edema Gastrointestinal (Abdomen): Inspection/Auscultation: abdomen normal to inspection; abdomen not distended Musculoskeletal: no cyanosis or clubbing, extremities motor strength 5/5 Skin: no rashes, warm and dry Neurologic: moves all extremities; + not awake Psychiatric: Orientation: oriented to person and cooperative; + not alert Results & Data Results & Data ([facility]) Vital Signs (Past 12 Hours) Vital Signs Temp Pulse Pulse Resp BP BP Pulse Ox 12/04/21 11:36 105 H 12/04/21 11:08 36.4 C L 96 H 20 104/73 90 12/04/21 10:07 102 H 20 93 12/04/21 07:34 36.5 C 93 H 17 144/97 H 91 12/04/21 07:28 103 H 18 94 12/04/21 03:56 36.9 C 103 H 22 145/88 H 91 PG Care Time/CCT Total # of Minutes Spent Total Time Spent with Patient: Total time spent is greater than 50% in coordination of care (as documented) at patient's floor/unit and/or counseling patient: Coding Level of Care Code 92505 Subseq Hosp Care Lvl 2 Diagnoses Pneumonia due to COVID-19 virus U07.1; J12.82 Pulmonary nodules R91.8 Pericardial effusion I31.3 COPD (chronic obstructive pulmonary disease) J44.9 Hypertension I10
[2021-12-04 13:26] LABS: Base Excess VBG 3.7 mEq/L; HCO3 VBG 30 mmol/L; Oxygen Saturation VBG < 60.0 %; PCO2 VBG 51 mmHg (38-50); PO2 VBG 31 mmHg; pH VBG 7.38 (7.36-7.41)
[2021-12-04] MEDS: CHLORASEPTIC 1.4% SOLN 180 ML BTL MT PRN (20:09)
[2021-12-04] MEDS: HYDROcodone/ACETAMINOPHEN 10/325 TAB PO PRN (20:09)
[2021-12-04] MEDS: hydrOXYzine HCl 25 MG TAB PO PRN (20:09)
[2021-12-05] MEDS: ALBUTEROL HFA 8 GM INHALER INH PRN (01:50)
[2021-12-05] MEDS: dexAMETHasone 6 MG in SYRINGE 0 ML IV SCH (02:31)
[2021-12-05 06:12] LABS: Hemoglobin 13.9 g/dL (14.0-18.0); Mean Corpuscular Hemoglobin 29.7 pg (25-34); Mean Corpuscular Hgb Conc 31.6 g/dL (32-36); Mean Platelet Volume 9.3 fL (7.4-10.4); Platelet Count 400 K/uL (130-400); RDW Coefficient of Variation 15.2 % (11.5-14.5); RDW Standard Deviation 51.8 fL (36.4-46.3); Red Blood Count 4.68 M/uL (4.7-6.1); White Blood Count 15.56 K/uL (4.8-10.8)
[2021-12-05 06:46] LABS: Albumin Level 3.4 gm/dl (3.4-5.0); BUN Creatinine Ratio 37.5 (10-20); Bilirubin,Total 0.6 mg/dl (0.2-1.0); Calcium 8.2 mg/dl (8.5-10.1); Creatinine Clr Calc Pharmacy 75.3 ml/min; Globulin 3.4 gm/dl (2.5-4.0); Magnesium 2.4 mg/dl (1.7-2.4); Potassium 4.3 mmol/L (3.5-5.1); Total Protein 6.8 gm/dl (6.0-8.3)
[2021-12-05] MEDS: CHLORASEPTIC 1.4% SOLN 180 ML BTL MT PRN (07:39)
[2021-12-05] MEDS: ENOXAPARIN INJ 40 MG/0.4 ML SYR SQ SCH (07:46)
[2021-12-05] MEDS: FAMOTIDINE 40 MG TABLET PO SCH (07:47)
[2021-12-05] MEDS: amLODIPine BESYLATE 5 MG TAB PO SCH (07:47)
[2021-12-05] MEDS: BENZONATATE 100 MG CAPSULE PO SCH ×3 (07:47→19:55)
[2021-12-05] MEDS: LOSARTAN POTASSIUM 50 MG TAB PO SCH (07:47)
[2021-12-05] MEDS: guaiFENesin 600 MG TABCR PO SCH ×2 (07:48→19:55)
--- NOTE | 2021-12-05 12:04 | Hospitalist Progress Note ---
Date of Service December 05, 2021 Assessment & Plan (1) Pneumonia due to COVID-19 virus: Plan: First symptoms: 11/23/2021 First tested: 12/03/2021 Vaccinated: No Admission date: 12/03/2021 Admission O2 requirement: 6L (from home 4L NC) Admission CRP: 2.4 Dexamethasone course started: 12/03/2021; End date: 12/12/2021 Remdesivir contraindication: >7 days since symptom onset Tocilizumab/baricitinib contraindication: No need for high-flow oxygen Antibiotics: No lobar pneumonia on CTA on 12/03; procalcitonin normal - None DVT ppx: Lovenox 40 mg SQ daily Breathing treatments: Combivent PRN, Tessalon Perles, guaifenesin Presently requiring 6L NC. Had a brief episode where he needed more O2 when getting up to the restroom yesterday, but back to 6L now. (2) Pulmonary nodules: Plan: Noted on CTA. Many nodules concerning for metastases. Patient has no knowledge of prior pulmonary nodules. I told him that further workup will be needed after the acute issues resolve. - Outpatient workup (3) Pericardial effusion: Plan: Patient HD stable, no JVD, normal heart tones. Do not suspect tamponade. Possibly malignant? Question if patient has newly discovered metastatic disease based on lung nodules and adrenal nodule? - Monitor for now - Further workup after acute Covid resolves (4) COPD (chronic obstructive pulmonary disease): Plan: Patient with COPD, on home O2 4L at baseline. No wheezing appreciated on exam today. - Albuterol PRN - Combivent PRN - Steroids as above (5) Hypertension: Plan: Chronic. BP today is 115/75. - Continue losartan and amlodipine Admission and Anticipated Discharge Date Admission Date: December 03, 2021 Subjective Very tearful today, concerned about social issues re: housing and his car. That said, reports he is feeling better. Reports no fevers/chills, chest pain, shortness of breath, abdominal pain, nausea, or vomiting. Physical Exam Constitutional: WD/WN, vitals as above Eyes: EOM intact bilaterally; no conjunctival abnormality ENMT: external ear and nose normal, oropharynx normal Neck: trachea midline, no thyromegaly normal visual inspection Respiratory: normal respiratory effort, lungs clear to auscultation no respiratory distress Cardiovascular: RRR, no murmur, no edema Gastrointestinal (Abdomen): Inspection/Auscultation: abdomen normal to inspection; abdomen not distended Musculoskeletal: no cyanosis or clubbing, extremities motor strength 5/5 Skin: no rashes, warm and dry Neurologic: moves all extremities and awake Psychiatric: Orientation: alert, oriented to person and cooperative Affect: + tearful affect Results & Data Results & Data ([facility]) Vital Signs (Past 12 Hours) Vital Signs Temp Pulse Pulse Resp BP Pulse Ox 12/05/21 07:54 70 12/05/21 07:53 36.7 C 79 20 115/71 92 12/05/21 04:03 36.5 C 83 20 145/77 H 91 12/05/21 01:50 91 H 88 L 12/05/21 00:07 96 H PG Care Time/CCT Total # of Minutes Spent Total Time Spent with Patient: Total time spent is greater than 50% in coordination of care (as documented) at patient's floor/unit and/or counseling patient: Coding Level of Care Code 09569 Subseq Hosp Care Lvl 3 Diagnoses Pneumonia due to COVID-19 virus U07.1; J12.82 Pulmonary nodules R91.8 Pericardial effusion I31.3 COPD (chronic obstructive pulmonary disease) J44.9 Hypertension I10
[2021-12-05] MEDS: HYDROcodone/ACETAMINOPHEN 10/325 TAB PO PRN (19:54)
[2021-12-05] MEDS: hydrOXYzine HCl 25 MG TAB PO PRN (19:55)
[2021-12-06] MEDS: dexAMETHasone 6 MG in SYRINGE 0 ML IV SCH (02:07)
[2021-12-06 06:32] LABS: Hematocrit (blood only) 43.2 % (42-52); Mean Corpuscular Hemoglobin 30.2 pg (25-34); Mean Corpuscular Hgb Conc 32.4 g/dL (32-36); Mean Corpuscular Volume 93.1 fL (80-100); Mean Platelet Volume 9.8 fL (7.4-10.4); Platelet Count 354 K/uL (130-400); RDW Standard Deviation 51.1 fL (36.4-46.3); Red Blood Count 4.64 M/uL (4.7-6.1); White Blood Count 18.34 K/uL (4.8-10.8)
[2021-12-06 07:12] LABS: Albumin Globulin Ratio 0.9 (0.9-2); Albumin Level 3.2 gm/dl (3.4-5.0); BUN Creatinine Ratio 35.7 (10-20); Bilirubin,Total 0.4 mg/dl (0.2-1.0); Calcium 8.2 mg/dl (8.5-10.1); Creatinine Clr Calc Pharmacy 86.1 ml/min; Est GFR (African American) 94.1 ml/min; Est GFR (Non-African American) 81.2 ml/min; Globulin 3.5 gm/dl (2.5-4.0); Magnesium 2.2 mg/dl (1.7-2.4); Potassium 4.8 mmol/L (3.5-5.1); Total Protein 6.7 gm/dl (6.0-8.3)
[2021-12-06] MEDS: BENZONATATE 100 MG CAPSULE PO SCH ×3 (09:26→20:20)
[2021-12-06] MEDS: ENOXAPARIN INJ 40 MG/0.4 ML SYR SQ SCH (09:26)
[2021-12-06] MEDS: LOSARTAN POTASSIUM 50 MG TAB PO SCH (09:27)
[2021-12-06] MEDS: guaiFENesin 600 MG TABCR PO SCH ×2 (09:27→20:20)
[2021-12-06] MEDS: FAMOTIDINE 40 MG TABLET PO SCH (09:27)
[2021-12-06] MEDS: amLODIPine BESYLATE 5 MG TAB PO SCH (09:29)
--- NOTE | 2021-12-06 12:18 | Hospitalist Progress Note ---
Date of Service December 06, 2021 Assessment & Plan (1) Pneumonia due to COVID-19 virus: Plan: First symptoms: 11/23/2021 First tested: 12/03/2021 Vaccinated: No Admission date: 12/03/2021 Admission O2 requirement: 6L (from home 4L NC) Admission CRP: 2.4 Dexamethasone course started: 12/03/2021; End date: 12/12/2021 Remdesivir contraindication: >7 days since symptom onset Tocilizumab/baricitinib contraindication: No need for high-flow oxygen Antibiotics: No lobar pneumonia on CTA on 12/03; procalcitonin normal - None DVT ppx: Lovenox 40 mg SQ daily Breathing treatments: Combivent PRN, Tessalon Perles, guaifenesin Presently requiring 6L NC. Much better now. More energy. (2) Pulmonary nodules: Plan: Noted on CTA. Many nodules concerning for metastases. Patient has no knowledge of prior pulmonary nodules. I told him that further workup will be needed after the acute issues resolve. - Outpatient workup (3) Pericardial effusion: Plan: Patient HD stable, no JVD, normal heart tones. Do not suspect tamponade. Possibly malignant? Question if patient has newly discovered metastatic disease based on lung nodules and adrenal nodule? - Monitor for now - Further work-up after acute Covid resolves (4) COPD (chronic obstructive pulmonary disease): Plan: Patient with COPD, on home O2 4L at baseline. No wheezing appreciated on exam today. - Albuterol PRN - Combivent PRN - Steroids as above (5) Hypertension: Plan: Chronic. BP today is 115/75. - Continue losartan and amlodipine Admission and Anticipated Discharge Date Admission Date: December 03, 2021 Subjective Feeling great today. Wants to eat a steak. Much more energy and more positive. Reports no fevers/chills, chest pain, shortness of breath, abdominal pain, nausea, or vomiting. Physical Exam Constitutional: WD/WN, vitals as above + lethargic Eyes: EOM intact bilaterally; no conjunctival abnormality ENMT: external ear and nose normal, oropharynx normal Neck: trachea midline, no thyromegaly normal visual inspection Respiratory: normal respiratory effort, lungs clear to auscultation no respiratory distress Cardiovascular: RRR, no murmur, no edema Gastrointestinal (Abdomen): Inspection/Auscultation: abdomen normal to inspection; abdomen not distended Musculoskeletal: no cyanosis or clubbing, extremities motor strength 5/5 Skin: no rashes, warm and dry Neurologic: moves all extremities and awake Psychiatric: Orientation: alert, oriented to person and cooperative Results & Data Results & Data ([facility]) Vital Signs (Past 12 Hours) Vital Signs Temp Pulse Pulse Resp BP BP Pulse Ox 12/06/21 11:01 37.2 C 84 22 113/73 91 12/06/21 08:18 36.4 C L 81 19 125/80 93 12/06/21 02:39 36.5 C 81 20 123/80 92 12/06/21 02:13 89 PG Care Time/CCT Total # of Minutes Spent Total Time Spent with Patient: Total time spent is greater than 50% in coordination of care (as documented) at patient's floor/unit and/or counseling patient: Coding Level of Care Code 61869 Subseq Hosp Care Lvl 2 Diagnoses Pneumonia due to COVID-19 virus U07.1; J12.82 Pulmonary nodules R91.8 Pericardial effusion I31.3 COPD (chronic obstructive pulmonary disease) J44.9 Hypertension I10
[2021-12-07] MEDS: dexAMETHasone 6 MG in SYRINGE 0 ML IV SCH (01:54)
[2021-12-07 06:32] LABS: Hematocrit (blood only) 42.7 % (42-52); Hemoglobin 13.8 g/dL (14.0-18.0); Mean Corpuscular Hemoglobin 30.2 pg (25-34); Mean Corpuscular Hgb Conc 32.3 g/dL (32-36); Mean Corpuscular Volume 93.4 fL (80-100); Mean Platelet Volume 9.9 fL (7.4-10.4); Platelet Count 377 K/uL (130-400); RDW Standard Deviation 51.1 fL (36.4-46.3); Red Blood Count 4.57 M/uL (4.7-6.1); White Blood Count 18.21 K/uL (4.8-10.8)
[2021-12-07 07:04] LABS: BUN Creatinine Ratio 35.6 (10-20); Calcium 8.5 mg/dl (8.5-10.1); Creatinine Clr Calc Pharmacy 93.7 ml/min; Est GFR (African American) 104.2 ml/min; Est GFR (Non-African American) 89.9 ml/min; Magnesium 2.1 mg/dl (1.7-2.4)
[2021-12-07] MEDS: BENZONATATE 100 MG CAPSULE PO SCH ×3 (08:53→20:26)
[2021-12-07] MEDS: LOSARTAN POTASSIUM 50 MG TAB PO SCH (08:53)
[2021-12-07] MEDS: amLODIPine BESYLATE 5 MG TAB PO SCH (08:54)
[2021-12-07] MEDS: ENOXAPARIN INJ 40 MG/0.4 ML SYR SQ SCH (08:54)
[2021-12-07] MEDS: guaiFENesin 600 MG TABCR PO SCH ×2 (08:54→20:26)
[2021-12-07] MEDS: FAMOTIDINE 40 MG TABLET PO SCH (08:54)
[2021-12-07] MEDS: CHLORASEPTIC 1.4% SOLN 180 ML BTL MT PRN (08:55)
[2021-12-07] MEDS: HYDROcodone/ACETAMINOPHEN 10/325 TAB PO PRN (09:02)
[2021-12-07] MEDS: hydrOXYzine HCl 25 MG TAB PO PRN (09:03)
--- NOTE | 2021-12-07 16:42 | Hospitalist Progress Note ---
Date of Service December 07, 2021 Assessment & Plan (1) Pneumonia due to COVID-19 virus: Plan: First symptoms: 11/23/2021 First tested: 12/03/2021 Vaccinated: No Admission date: 12/03/2021 Admission O2 requirement: 6L (from home 4L NC) Admission CRP: 2.4 Dexamethasone course started: 12/03/2021; End date: 12/12/2021 Remdesivir contraindication: >7 days since symptom onset Tocilizumab/baricitinib contraindication: No need for high-flow oxygen Antibiotics: No lobar pneumonia on CTA on 12/03; procalcitonin normal - None DVT ppx: Lovenox 40 mg SQ daily Breathing treatments: Combivent PRN, Tessalon Perles, guaifenesin Presently requiring 4L NC. Much better now. More energy. PT/OT recommend SNF. (2) Pulmonary nodules: Plan: Noted on CTA. Many nodules concerning for metastases. Patient has no knowledge of prior pulmonary nodules. I told him that further workup will be needed after the acute issues resolve. - Outpatient workup (3) Pericardial effusion: Plan: Patient HD stable, no JVD, normal heart tones. Do not suspect tamponade. Possibly malignant? Question if patient has newly discovered metastatic disease based on lung nodules and adrenal nodule? - Monitor for now -> HR and BP stable. No indication of tamponade. - Further work-up after acute Covid resolves (4) COPD (chronic obstructive pulmonary disease): Plan: Patient with COPD, on home O2 4L at baseline. No wheezing appreciated on exam today. - Albuterol PRN - Combivent PRN - Steroids as above (5) Hypertension: Plan: Chronic. BP today is 115/80. - Continue losartan and amlodipine Admission and Anticipated Discharge Date Admission Date: December 03, 2021 Subjective Doing well today overall. No major concerns. Still short of breath with walking, but improving. Reports no fevers/chills, chest pain, abdominal pain, nausea, or vomiting. Physical Exam Constitutional: WD/WN, vitals as above Eyes: EOM intact bilaterally; no conjunctival abnormality ENMT: external ear and nose normal, oropharynx normal Neck: trachea midline, no thyromegaly normal visual inspection Respiratory: normal respiratory effort, lungs clear to auscultation no respiratory distress Cardiovascular: RRR, no murmur, no edema Gastrointestinal (Abdomen): Inspection/Auscultation: abdomen normal to inspection; abdomen not distended Musculoskeletal: no cyanosis or clubbing, extremities motor strength 5/5 Skin: no rashes, warm and dry Neurologic: moves all extremities and awake Psychiatric: Orientation: alert, oriented to person and cooperative Results & Data Results & Data ([facility]) Vital Signs (Past 12 Hours) Vital Signs Temp Pulse Pulse Resp BP Pulse Ox Pulse Ox 12/07/21 15:38 36.9 C 89 19 114/78 95 12/07/21 11:14 36.8 C 101 H 20 98/66 L 92 12/07/21 10:07 92 12/07/21 09:26 95 12/07/21 08:01 36.9 C 88 19 103/73 96 12/07/21 08:00 91 H 94 12/07/21 06:27 91 Pulse Ox 12/07/21 15:38 12/07/21 11:14 12/07/21 10:07 12/07/21 09:26 95 12/07/21 08:01 12/07/21 08:00 12/07/21 06:27 PG Care Time/CCT Total # of Minutes Spent Total Time Spent with Patient: Total time spent is greater than 50% in coordination of care (as documented) at patient's floor/unit and/or counseling patient: Coding Level of Care Code 22793 Subseq Hosp Care Lvl 2 Diagnoses Pneumonia due to COVID-19 virus U07.1; J12.82 Pulmonary nodules R91.8 Pericardial effusion I31.3 COPD (chronic obstructive pulmonary disease) J44.9 Hypertension I10
[2021-12-08] MEDS: dexAMETHasone 6 MG in SYRINGE 0 ML IV SCH (02:10)
[2021-12-08 06:32] LABS: Hematocrit (blood only) 41.3 % (42-52); Mean Corpuscular Hgb Conc 31.5 g/dL (32-36); Mean Corpuscular Volume 95.2 fL (80-100); Platelet Count 358 K/uL (130-400); RDW Standard Deviation 52.1 fL (36.4-46.3); Red Blood Count 4.34 M/uL (4.7-6.1); White Blood Count 18.33 K/uL (4.8-10.8)
[2021-12-08 06:57] LABS: Albumin Globulin Ratio 0.9 (0.9-2); Albumin Level 3.1 gm/dl (3.4-5.0); Bilirubin,Total 0.3 mg/dl (0.2-1.0); Calcium 8.5 mg/dl (8.5-10.1); Creatinine Clr Calc Pharmacy 92.7 ml/min; Est GFR (African American) 102.9 ml/min; Est GFR (Non-African American) 88.8 ml/min; Globulin 3.5 gm/dl (2.5-4.0); Potassium 4.9 mmol/L (3.5-5.1); Total Protein 6.6 gm/dl (6.0-8.3)
[2021-12-08] MEDS: CHLORASEPTIC 1.4% SOLN 180 ML BTL MT PRN ×2 (08:51→16:10)
[2021-12-08] MEDS: BENZONATATE 100 MG CAPSULE PO SCH ×3 (08:51→20:31)
[2021-12-08] MEDS: amLODIPine BESYLATE 5 MG TAB PO SCH (08:52)
[2021-12-08] MEDS: LOSARTAN POTASSIUM 50 MG TAB PO SCH (08:53)
[2021-12-08] MEDS: FAMOTIDINE 40 MG TABLET PO SCH (08:53)
[2021-12-08] MEDS: guaiFENesin 600 MG TABCR PO SCH ×2 (08:53→20:31)
[2021-12-08] MEDS: ENOXAPARIN INJ 40 MG/0.4 ML SYR SQ SCH (08:54)
[2021-12-08] MEDS: HYDROcodone/ACETAMINOPHEN 10/325 TAB PO PRN (17:39)
--- NOTE | 2021-12-08 18:59 | Hospitalist Progress Note ---
Date of Service December 08, 2021 Assessment & Plan (1) Pneumonia due to COVID-19 virus: Plan: First symptoms: 11/23/2021 First tested: 12/03/2021 Vaccinated: No Admission date: 12/03/2021 Admission O2 requirement: 6L (from home 4L NC) Admission CRP: 2.4 Dexamethasone course started: 12/03/2021; End date: 12/12/2021 Remdesivir contraindication: >7 days since symptom onset Tocilizumab/baricitinib contraindication: No need for high-flow oxygen Antibiotics: No lobar pneumonia on CTA on 12/03; procalcitonin normal - None DVT ppx: Lovenox 40 mg SQ daily Breathing treatments: Combivent PRN, Tessalon Perles, guaifenesin Presently requiring 4L NC. Much better now. More energy. PT/OT recommend SNF patient however wants to go home (2) Pulmonary nodules: Plan: Noted on CTA. Many nodules concerning for metastases. Patient has no knowledge of prior pulmonary nodules. I told him that further workup will be needed after the acute issues resolve. - Outpatient workup may need biopsy, pulmonary referral (3) Pericardial effusion: Plan: Patient HD stable, no JVD, normal heart tones. Do not suspect tamponade. Possi kenton malignant? Question if patient has newly discovered metastatic disease based on lung nodules and adrenal nodule? - Monitor for now -> HR and BP stable. No indication of tamponade. - Further work-up after acute Covid resolves (4) COPD (chronic obstructive pulmonary disease): Plan: Patient with COPD, on home O2 4L at baseline. No wheezing appreciated on exam today. - Albuterol PRN - Combivent PRN - Steroids as above (5) Hypertension: Plan: Chronic. BP today is 115/80. - Continue losartan and amlodipine Plan: Current biggest issue is deconditioning Admission and Anticipated Discharge Date Admission Date: December 03, 2021 Subjective Doing well today overall. No major concerns. Still short of breath with walking, patient feels very weak and does live alone, but symptoms are improving. Review of Systems Review of Systems: Moderate distress and fatigue no headache, no visual changes no speech or swallowing issues no chest pain, pressure or palpitations Continue shortness of breath, nonproductive cough or wheezes no abdominal pain, nausea or vomiting, no diarrhea no dysuria, hematuria or frequency no focal joint pain or swelling no back pain, CVA tenderness or radicular pain no bruising, bleeding or rashes no focal signs of weakness or numbness or altered sensation no complaints of anxiety or depression.. Physical Exam Physical Exam: The patient appeared mild to moderate respiratory distress Vital signs as documented. Head exam is normocephalic atraumatic Neck is without JVD, thyromegaly, or carotid bruits. Lungs are coarse bilaterally in all lung baker tachypnea Cardiac exam, Rhythm is regular.. No murmurs, rubs or gallops. Abdominal exam reveals normal bowel sounds, soft non tender, no masses Extremities are nonedematous and both pedal pulses are present Neurologic exam is alert and oriented, no focal loss of strength or sensation Skin is without bruises or rashes Psychologically is without concerns for anxiety or depression.. Results & Data Results & Data ([facility]) Vital Signs (Past 12 Hours) Vital Signs Temp Pulse Resp BP Pulse Ox 12/08/21 15:36 98.4 F 94 H 19 107/69 94 12/08/21 11:04 98.2 F 89 19 111/67 91 12/08/21 07:32 97.9 F 88 19 127/84 90 PG Care Time/CCT Total # of Minutes Spent Total Time Spent with Patient: Total time spent is greater than 50% in coordination of care (as documented) at patient's floor/unit and/or counseling patient: Coding Level of Care Code 24668 Subseq Hosp Care Lvl 2 Diagnoses Pneumonia due to COVID-19 virus U07.1; J12.82 Pulmonary nodules R91.8 Pericardial effusion I31.3 COPD (chronic obstructive pulmonary disease) J44.9 Hypertension I10
[2021-12-09] MEDS: dexAMETHasone 6 MG in SYRINGE 0 ML IV SCH (02:08)
[2021-12-09] MEDS: amLODIPine BESYLATE 5 MG TAB PO SCH (07:48)
[2021-12-09] MEDS: guaiFENesin 600 MG TABCR PO SCH ×2 (07:48→20:50)
[2021-12-09] MEDS: BENZONATATE 100 MG CAPSULE PO SCH ×3 (07:49→20:50)
[2021-12-09] MEDS: ENOXAPARIN INJ 40 MG/0.4 ML SYR SQ SCH (07:50)
[2021-12-09] MEDS: FAMOTIDINE 40 MG TABLET PO SCH (07:50)
[2021-12-09] MEDS: LOSARTAN POTASSIUM 50 MG TAB PO SCH (07:50)
--- NOTE | 2021-12-09 13:54 | Hospitalist Progress Note ---
Date of Service December 09, 2021 Assessment & Plan (1) Pneumonia due to COVID-19 virus: Plan: First symptoms: 11/23/2021 First tested: 12/03/2021 Vaccinated: No Admission date: 12/03/2021 Admission O2 requirement: 6L (from home 4L [place]) Admission CRP: 2.4 Dexamethasone course started: 12/03/2021; End date: 12/12/2021 Remdesivir contraindication: >7 days since symptom onset Tocilizumab/baricitinib contraindication: No need for high-flow oxygen Antibiotics: No lobar pneumonia on CTA on 12/03; procalcitonin normal - None DVT ppx: Lovenox 40 mg SQ daily Breathing treatments: Combivent PRN, Tessalon Perles, guaifenesin Presently requiring 4L NC. Much better now. More energy. PT/OT recommend SNF patient however wants to go home (2) Pulmonary nodules: Plan: Noted on CTA. Many nodules concerning for metastases. Pt states follows with [facility] lung doctor and understands will need follow up in short time course after discharge (3) Pericardial effusion: Plan: Patient HD stable, no JVD, normal heart tones. Do not suspect tamponade. Possibly malignant? Question if patient has newly discovered metastatic disease based on lung nodules and adrenal nodule? -Has been stable but worrisome given total patient presentation (4) COPD (chronic obstructive pulmonary disease): Plan: Patient with COPD, on home O2 4L at baseline, seems to be at baseline - Albuterol PRN - Combivent PRN - Steroids as above (5) Hypertension: Plan: Chronic. BP today is 115/80. - Continue losartan and amlodipine Plan: Current biggest issue is deconditioning Admission and Anticipated Discharge Date Admission Date: December 03, 2021 Subjective Doing well today overall. No major concerns. Still short of breath with walking, but now at his baseline 4 L NC relaibly, patient feels very weak and does live alone, feels he is not quite ready to go home, cannot remember family numbers and none listed as contact, will continue to work with PT and if not ready may need rehab referral Review of Systems Review of Systems: Moderate distress and fatigue no headache, no visual changes no speech or swallowing issues no chest pain, pressure or palpitations Continue shortness of breath, nonproductive cough or wheezes no abdominal pain, nausea or vomiting, no diarrhea no dysuria, hematuria or frequency no focal joint pain or swelling no back pain, CVA tenderness or radicular pain no bruising, bleeding or rashes no focal signs of weakness or numbness or altered sensation no complaints of anxiety or depression.. Physical Exam Physical Exam: The patient appeared mild to moderate respiratory distress Vital signs as documented. Head exam is normocephalic atraumatic Neck is without JVD, thyromegaly, or carotid bruits. Lungs are coarse bilaterally in all lung baker tachypnea Cardiac exam, Rhythm is regular.. No murmurs, rubs or gallops. Abdominal exam reveals normal bowel sounds, soft non tender, no masses Extremities are nonedematous and both pedal pulses are present Neurologic exam is alert and oriented, no focal loss of strength or sensation Skin is without bruises or rashes Psychologically is without concerns for anxiety or depression.. Results & Data Results & Data ([facility]) Vital Signs (Past 12 Hours) Vital Signs Temp Pulse Pulse Resp BP Pulse Ox 12/09/21 12:08 98.2 F 87 19 99/67 L 94 12/09/21 07:42 98.2 F 81 20 111/68 90 12/09/21 07:00 86 12/09/21 04:00 98.1 F 97 H 20 114/66 91 PG Care Time/CCT Total # of Minutes Spent Total Time Spent with Patient: Total time spent is greater than 50% in coordination of care (as documented) at patient's floor/unit and/or counseling patient: Coding Level of Care Code 53846 Subseq Hosp Care Lvl 2 Diagnoses Pneumonia due to COVID-19 virus U07.1; J12.82 Pulmonary nodules R91.8 Pericardial effusion I31.3 COPD (chronic obstructive pulmonary disease) J44.9 Hypertension I10
[2021-12-09] MEDS ORDERED: ALUMINUM/MAGNESIUM SUSP 30 ML UDC PO PRN (23:09)
[2021-12-10] MEDS: dexAMETHasone 6 MG in SYRINGE 0 ML IV SCH (02:40)
[2021-12-10] MEDS: guaiFENesin 600 MG TABCR PO SCH ×2 (08:49→21:43)
[2021-12-10] MEDS: BENZONATATE 100 MG CAPSULE PO SCH ×3 (08:49→20:56)
--- NOTE | 2021-12-10 08:49 | Hospitalist Progress Note ---
Date of Service December 10, 2021 Assessment & Plan (1) Pneumonia due to COVID-19 virus: Plan: First symptoms: 11/23/2021 First tested: 12/03/2021 Vaccinated: No Admission date: 12/03/2021 Admission O2 requirement: 6L (from home 4L NC) Admission CRP: 2.4 Dexamethasone course started: 12/03/2021; End date: 12/12/2021 Remdesivir contraindication: >7 days since symptom onset Tocilizumab/baricitinib contraindication: No need for high-flow oxygen Antibiotics: No lobar pneumonia on CTA on 12/03; procalcitonin normal - None DVT ppx: Lovenox 40 mg SQ daily Breathing treatments: Combivent PRN, Tessalon Perles, guaifenesin Presently requiring 4L NC. Much better now. More energy. PT/OT recommend SNF patient however wants to go home, continues to improve daily uses [place] for oxygen supplier, may need to see if they have oxygen conserving devices (2) Pulmonary nodules: Plan: Noted on CTA. Many nodules concerning for metastases. Pt states follows with [facility] lung doctor and understands will need follow up in short time course after discharge (3) Pericardial effusion: Plan: Patient HD stable, no JVD, normal heart tones. Do not suspect tamponade. Possibly malignant? Question if patient has newly discovered metastatic disease based on lung nodules and adrenal nodule? -Has been stable but worrisome given total patient presentation family is updated (4) COPD (chronic obstructive pulmonary disease): Plan: Patient with COPD, on home O2 4L at baseline, seems to be at baseline - Albuterol PRN - Combivent PRN - Steroids as above (5) Hypertension: Plan: Chronic. BP today is 115/80. - Continue losartan and amlodipine Plan: Current biggest issue is deconditioning katherin is his cousin lives next door, , she feels he has a good living environment Admission and Anticipated Discharge Date Admission Date: December 03, 2021 Subjective Patient feels like is getting stronger every day does not feel quite ready yet to go home at this time breathing is about his baseline on 4 L nasal cannula Review of Systems Review of Systems: Moderate distress and fatigue no headache, no visual changes no speech or swallowing issues no chest pain, pressure or palpitations Continue shortness of breath, nonproductive cough or wheezes no abdominal pain, nausea or vomiting, no diarrhea no dysuria, hematuria or frequency no focal joint pain or swelling no back pain, CVA tenderness or radicular pain no bruising, bleeding or rashes no focal signs of weakness or numbness or altered sensation no complaints of anxiety or depression.. Physical Exam Physical Exam: The patient appeared mild to moderate respiratory distress Vital signs as documented. Head exam is normocephalic atraumatic Neck is without JVD, thyromegaly, or carotid bruits. Lungs are coarse bilaterally in all lung baker tachypnea Cardiac exam, Rhythm is regular.. No murmurs, rubs or gallops. Abdominal exam reveals normal bowel sounds, soft non tender, no masses Extremities are nonedematous and both pedal pulses are present Neurologic exam is alert and oriented, no focal loss of strength or sensation Skin is without bruises or rashes Psychologically is without concerns for anxiety or depression.. Results & Data Results & Data ([facility]) Vital Signs (Past 12 Hours) Vital Signs Temp Pulse Pulse Resp BP BP Pulse Ox 12/10/21 06:09 97.9 F 86 20 124/79 96 12/10/21 03:05 98.4 F 72 16 124/69 93 12/10/21 00:00 95 H 12/09/21 22:54 97.9 F 97 H 20 129/83 94 PG Care Time/CCT Total # of Minutes Spent Total Time Spent with Patient: Total time spent is greater than 50% in coordination of care (as documented) at patient's floor/unit and/or counseling patient: Coding Level of Care Code 78760 Subseq Hosp Care Lvl 2 Diagnoses Pneumonia due to COVID-19 virus U07.1; J12.82 Pulmonary nodules R91.8 Pericardial effusion I31.3 COPD (chronic obstructive pulmonary disease) J44.9 Hypertension I10
[2021-12-10] MEDS: ENOXAPARIN INJ 40 MG/0.4 ML SYR SQ SCH (08:50)
[2021-12-10] MEDS: FAMOTIDINE 40 MG TABLET PO SCH (08:50)
[2021-12-10] MEDS: amLODIPine BESYLATE 5 MG TAB PO SCH (08:50)
[2021-12-10] MEDS: LOSARTAN POTASSIUM 50 MG TAB PO SCH (09:27)
[2021-12-10] MEDS: MELATONIN 3 MG TAB PO PRN (21:43)
[2021-12-10] MEDS: CHLORASEPTIC 1.4% SOLN 180 ML BTL MT PRN (21:44)
[2021-12-11] MEDS: dexAMETHasone 6 MG in SYRINGE 0 ML IV SCH (02:11)
--- NOTE | 2021-12-11 07:12 | Hospitalist Progress Note ---
Date of Service December 11, 2021 Assessment & Plan (1) Pneumonia due to COVID-19 virus: Plan: First symptoms: 11/23/2021 First tested: 12/03/2021 Vaccinated: No Admission date: 12/03/2021 Admission O2 requirement: 6L (from home 4L NC) Admission CRP: 2.4 Dexamethasone course started: 12/03/2021; End date: 12/12/2021 Remdesivir contraindication: >7 days since symptom onset Tocilizumab/baricitinib contraindication: No need for high-flow oxygen Antibiotics: No lobar pneumonia on CTA on 12/03; procalcitonin normal - None DVT ppx: Lovenox 40 mg SQ daily Breathing treatments: Combivent PRN, Tessalon Perles, guaifenesin Presently requiring 4L NC. Much better now. More energy. PT/OT recommend SNF patient however wants to go home, continues to improve daily uses [place] for oxygen supplier, oxygen requirements have lessened (2) Pulmonary nodules: Plan: Noted on CTA. Many nodules concerning for metastases. Pt states follows with [facility] lung doctor and understands will need follow up in short time course after discharge (3) Pericardial effusion: Plan: Patient HD stable, no JVD, normal heart tones. Do not suspect tamponade. Possibly malignant? Question if patient has newly discovered metastatic disease based on lung nodules and adrenal nodule? -Has been stable but worrisome given total patient presentation family is updated (4) COPD (chronic obstructive pulmonary disease): Plan: Patient with COPD, on home O2 4L at baseline, seems to be at baseline - Albuterol PRN - Combivent PRN - Steroids as above (5) Hypertension: Plan: Chronic. BP today is 115/80. - Continue losartan and amlodipine Plan: Current biggest issue is deconditioning katherin is his cousin lives next door, , she feels he has a good living environment Admission and Anticipated Discharge Date Admission Date: December 03, 2021 Subjective Patient feels like is getting stronger every day will need to coordinate transport to home and home oxygen, 2L at rest 4 L with exertion Review of Systems Review of Systems: Moderate distress and fatigue no headache, no visual changes no speech or swallowing issues no chest pain, pressure or palpitations Continues with shortness of breath& nonproductive cough but improving no abdominal pain, nausea or vomiting, no diarrhea no dysuria, hematuria or frequency no focal joint pain or swelling no back pain, CVA tenderness or radicular pain no bruising, bleeding or rashes no focal signs of weakness or numbness or altered sensation no complaints of anxiety or depression.. Physical Exam Physical Exam: The patient appeared mild to moderate respiratory distress Vital signs as documented. Head exam is normocephalic atraumatic Neck is without JVD, thyromegaly, or carotid bruits. Lungs are coarse bilaterally in all lung baker less tachypnea with exertion Cardiac exam, Rhythm is regular.. No murmurs, rubs or gallops. Abdominal exam reveals normal bowel sounds, soft non tender, no masses Extremities are nonedematous and both pedal pulses are present Neurologic exam is alert and oriented, no focal loss of strength or sensation Skin is without bruises or rashes Psychologically is without concerns for anxiety or depression.. Results & Data Results & Data ([facility]) Vital Signs (Past 12 Hours) Vital Signs Temp Pulse Pulse Resp BP Pulse Ox 12/11/21 02:51 97.7 F 89 16 117/70 90 12/10/21 23:34 98.1 F 86 20 106/67 97 12/10/21 23:01 84 12/10/21 19:15 98.2 F 86 19 127/83 95 PG Care Time/CCT Total # of Minutes Spent Total Time Spent with Patient: Total time spent is greater than 50% in coordination of care (as documented) at patient's floor/unit and/or counseling patient: Coding Level of Care Code 38770 Subseq Hosp Care Lvl 2 Diagnoses Pneumonia due to COVID-19 virus U07.1; J12.82 Pulmonary nodules R91.8 Pericardial effusion I31.3 COPD (chronic obstructive pulmonary disease) J44.9 Hypertension I10
[2021-12-11] MEDS: LOSARTAN POTASSIUM 50 MG TAB PO SCH (08:00)
[2021-12-11] MEDS: amLODIPine BESYLATE 5 MG TAB PO SCH (08:00)
[2021-12-11] MEDS: guaiFENesin 600 MG TABCR PO SCH ×2 (08:00→21:02)
[2021-12-11] MEDS: BENZONATATE 100 MG CAPSULE PO SCH ×3 (08:00→21:03)
[2021-12-11] MEDS: FAMOTIDINE 40 MG TABLET PO SCH (10:30)
[2021-12-11] MEDS: ENOXAPARIN INJ 40 MG/0.4 ML SYR SQ SCH (10:30)
[2021-12-11] MEDS: CHLORASEPTIC 1.4% SOLN 180 ML BTL MT PRN (21:03)
[2021-12-11] MEDS: MELATONIN 3 MG TAB PO PRN (21:03)
[2021-12-12] MEDS: dexAMETHasone 6 MG in SYRINGE 0 ML IV SCH (00:34)
[2021-12-12] MEDS: CHLORASEPTIC 1.4% SOLN 180 ML BTL MT PRN (00:35)
[2021-12-12] MEDS: guaiFENesin 600 MG TABCR PO SCH (08:40)
[2021-12-12] MEDS: amLODIPine BESYLATE 5 MG TAB PO SCH (08:41)
[2021-12-12] MEDS: BENZONATATE 100 MG CAPSULE PO SCH (08:41)
[2021-12-12] MEDS: LOSARTAN POTASSIUM 50 MG TAB PO SCH (08:42)
[2021-12-12] MEDS: ENOXAPARIN INJ 40 MG/0.4 ML SYR SQ SCH (08:42)
[2021-12-12] MEDS: FAMOTIDINE 40 MG TABLET PO SCH (08:42)
[2021-12-12 12:27] VITALS: BP 121/79; PULSE 58; TEMP 97.7; O2SAT 96
--- NOTE | 2021-12-12 19:52 | Discharge Summary ---
Date of Service December 12, 2021 Admission HPI Per Admitting Provider Travis Shay is a 66yo male with history of HTN and COPD presenting with Covid-19 PNA. Patient states he has not been feeling well for the last week. He complains of cough, SOB, AGUIRRE, weakness, congestion. He denies fever, abdominal pain, nausea, vomiting, diarrhea or constipation. Patient uses 4L of O2 at home as baseline Patient is not vaccinated against Covid-19 He was seen at [facility] yesterday and states that he was treated poorly so he left. Uncertain if workup was complete. Patient hypoxic by EMS to 80's Presently he is tearful and anxious stating "I don't want to ...I wish I cou ld just breathe". He has no additional complaints. Tachycardic and hypertensive, saturating 92% presently on 4L NC ER Course: Dexamethasone 10mg IV Principal Diagnosis Pneumonia due to COVID-19 virus Pulmonary nodules Acute hypoxic respiratory failure requiring home oxygen Discharge Exam The patient appeared to be recovering Vital signs as documented. Lungs are clear to auscultation prolonged expiratory phase and diminished breath sounds throughout Neurologic exam is alert and oriented, patient is weakened but can ambulate with assistive devices Discharge Data Allergies Allergy/AdvReac Type Severity Reaction Status Date / Time Penicillins Allergy Severe Anaphylaxis Verified 12/03/21 02:08 Ordered Studies Chest X-Ray 12/03/21 01:59 XR chest 1V portable CLINICAL HISTORY: Dyspnea TECHNIQUE: Single frontal radiograph of the chest was obtained. Comparison: None available at the time of this dictation. FINDINGS: No lines and tubes are seen. The cardiomediastinal silhouette is normal. Bilateral lower lung predominant airspace opacities are seen. No evidence of pleural effusion or pneumothorax. IMPRESSION: Bilateral lower lung predominant airspace opacities which may represent atelectasis, pneumonia, and/or aspiration. ACT 112: Negative or not required by law. Electronically signed by: Flako Evangelista M.D. 12/03/2021 7:42 AM Chest CTA 12/03/21 02:26 CT angio chest PE protocol CLINICAL HISTORY: PE TECHNIQUE: Multidetector row helical CT of the chest was performed. Coronal and sagittal reformations were obtained. Coronal and sagittal MIPS were obtained from the axial data set and were submitted for review. Automated dose lowering techniques and/or adjustment according to patient size were utilized for this exam. Comparison: Comparison is made to chest one view 12/03/2021 FINDINGS: Lungs and pleura: There are innumerable pulmonary nodules bilaterally. Emphysematous changes are seen. Bronchial wall thickening is noted. Heart and pericardium: Heart size is normal. No pericardial effusion. Vessels: No evidence of pulmonary embolism. Moderate atherosclerotic disease is seen. Mediastinum and tina: Unremarkable. Chest wall and lower neck: Unremarkable. Abdomen: Ill-defined hepatic hypodensity is seen measuring approximately 9 cm in diameter. Cholelithiasis is seen without evidence of cholecystitis. There is a left adrenal nodule measuring approximately 2 cm in diameter. Bones: Degenerative changes in the thoracic spine. IMPRESSION: 1. No evidence of pulmonary embolism. 2. Numerous pulmonary nodules and soft tissue lesions in the liver left adrenal gland. Findings are concerning for metastatic disease of unknown primary. If not previously evaluated, PET/CT or tissue sampling can be considered. ACT 112: Negative or not required by law. Electronically signed by: Flako Evangelista M.D. 12/03/2021 7:48 AM Hospital Course (1) Pneumonia due to COVID-19 virus: First symptoms: 11/23/2021 First tested: 12/03/2021 Vaccinated: No Admission date: 12/03/2021 Admission O2 requirement: 6L (from home 4L NC) Admission CRP: 2.4 Dexamethasone course started: 12/03/2021; End date: 12/12/2021 Remdesivir contraindication: >7 days since symptom onset Tocilizumab/baricitinib contraindication: No need for high-flow oxygen Antibiotics: No lobar pneumonia on CTA on 12/03; procalcitonin normal - None guaifenesin PT/OT recommend SNF patient however wants to go home, continues to improve daily uses [employer] for oxygen supplier, oxygen requirements have lessened 2 L at rest 4 with exertion (2) Pulmonary nodules: Noted on CTA. Many nodules concerning for metastases. Pt states follows with [facility] lung doctor and understands will need follow up in short time course after discharge (3) Pericardial effusion: Patient HD stable, no JVD, normal heart tones. Do not suspect tamponade. Possibly malignant? Question if patient has newly discovered metastatic disease based on lung nodules and adrenal nodule? -Has been stable but worrisome given total patient presentation family is updated (4) COPD (chronic obstructive pulmonary disease): Patient with COPD, on home O2 2 L at Rest 4L with exertion -Atrovent plus fluticasone salmeterol -Tapering dose of prednisone at home (5) Hypertension: Chronic. BP today is 115/80. - Continue losartan and amlodipine Current biggest issue is deconditioning improving daily katherin is his cousin lives next door, , she feels he has a good living environment Total Time Total Time Spent Total Time Spent (In Minutes): It required greater than 30 minutes to prepare this patient for discharge Discharge Plan Discharge Items Patient Disposition: Home - Home Health Services Reason For Visit: COVID-19 Discharge Diagnosis: acute hypoxic respiratory failure covid infection copd Activity: Per Instructions section Activity Comment: wear oxygen at all times and try not over exert yourself Non-emergency contact: Primary Care Provider Call non-emergency contact if: your symptoms worsen and you have a fever Follow-up/Referrals: Avery Seay [Primary Care Provider] - (PLEASE CALL YOUR PRIMARY CARE PROVIDER TO SCHEDULE A DISCHARGE FOLLOW-UP APPOINTMENT WITHIN 7-10 DAYS.) Diet: Regular Addtl Attending Provider Instructions: You have been diagnosed with covid infection, it would be recommended that you quarantine yourself for 10 days from your first test or first symptoms, and if at the 10th day you have no symptoms the you can come off quarantine but use common sense precautions. Quarantine means attempting to stay away from people who have not had an active covid infection in the past, and if you have to be around others to wear a mask even if you are indoors, do not share a room to sleep in with others until you are out of quarantine. If you still have symptoms at the 10th day, continue to quarantine until you are symptom free for 48 hours Please contact your family doctor for further evaluation of your oxygen supplementation you have improved somewhat while you have been here ana obando in the hopes would be that you continue to improve the need less oxygen as time goes on Pending Studies at Discharge: No Stand-Alone Forms: My [facility] [employer], Smoking Cessation Medications and DC Order Prescriptions: New guaifenesin [Mucinex] 600 mg Tablet Extended Release 12hr 1,200 mg PO Q12 Qty: 10 RF: 0 benzonatate 100 mg Capsule 100 mg PO TID Qty: 10 RF: 0 Atrovent HFA 17 mcg/actuation Hfa Aerosol Inhaler 1 puff inhalation QIDR Qty: 1 RF: 0 (DME) Oxygen Home Liters Per Minute See Rx Instructions .Route Qty: 4 RF: 0 prednisone 10 mg tablet 10 mg PO DAILY Qty: 48 RF: 0 Continued hydrocodone-acetaminophen 10-325 mg tablet 1 tab PO TID PRN (Reason: Pain) RF: 0 omeprazole 40 mg capsule,delayed release(DR/EC) 40 mg PO DAILY RF: 0 amlodipine 10 mg tablet 10 mg PO DAILY RF: 0 fluticasone propion-salmeterol 100-50 mcg/dose blister with device 1 ea INHALATION BID RF: 0 losartan 100 mg tablet 100 mg PO DAILY RF: 0 Changed albuterol sulfate 90 mcg/actuation HFA aerosol inhaler 2 puff INHALATION QID Qty: 0 RF: 0 dexamethasone 2 mg tablet 6 mg PO UD Qty: 18 RF: 0 Discharge Orders: Discharge Order (Routine); Ordered 12/12/21 Ordered By: Navi Whitehead Admission Data Admit Date/Time: 12/03/21 05:06 Attending Provider: Navi Whitehead Admit Provider: Christine Bush Primary Care Provider: Avery Seay Other Interventions: Discharge Summary Assessment (RN) Last Done: 12/12/21 12:16 Coding Level of Care Code D/C DAY MANAGEMENT >30 MINS Diagnoses Pneumonia due to COVID-19 virus U07.1; J12.82 Pulmonary nodules R91.8 Pericardial effusion I31.3 COPD (chronic obstructive pulmonary disease) J44.9 Hypertension I10
== END 2021-12-12 13:05 | disposition home health service (06) | DRG 177 ==
LOC: ED 01:51 → 2W 05:06 → SUATTDRO 05:06 → 2W 09:23

== ENCOUNTER 2022-01-10 08:44 | Inpatient (IN) ==
--- NOTE | 2022-01-10 09:04 | Emergency Department Note ---
Impression & Plan Sepsis, Hypoxia, Metastatic disease, Leukocytosis ED Provider Note NAME: MADI HORVATH AGE: 66 SEX: M : 1955 ARRIVES VIA: Ambulance INFORMANT: Patient ED PROVIDER(S): Lester Fuentes DO CHIEF COMPLAINT: Shortness of breath and belly pain HPI: Patient is a 66-year-old male who presents to the ER for worsening shortness of breath and swelling in the legs which has been worsening over the past 2 to 3 weeks. He admits to right lower quadrant abdominal pain as well which has been constant. He describes as a 5 out of 10. It is achy. It is worse with palpation. This has been present for the past 2 to 3 weeks as well. No previous abdominal surgeries. Denies any headache or change in vision. No chest pain. No dysuria urgency or frequency. ROS: See above HPI for pertinent positives & negatives. A total of 10 systems reviewed and were otherwise negative. PAST MEDICAL HISTORY:See Below PAST SURGICAL HISTORY:See Below FAMILY HISTORY:See Below SOCIAL HISTORY:See Below HOME MEDICATIONS:See Below ALLERGIES:See Below VITALS:See Below PHYSICAL EXAMINATION: GENERAL: Sitting up in bed, alert, well appearing, well nourished, no distress, non-toxic EYE EXAM: normal conjunctiva. OROPHARYNX: no exudate, no erythema, lips, buccal mucosa, and tongue normal and mucous membranes are moist NECK: supple, no nuchal rigidity, no adenopathy, non-tender LUNGS: Diminished bilaterally. Normal chest wall mechanics HEART: no murmurs, S1 normal and S2 normal ABDOMEN: abdomen soft, non-tender, normo-active bowel sounds, no masses, no rebound or guarding. UPPER EXTREMITIES: upper extremities are grossly normal. LOWER EXTREMITIES: +4 pitting edema bilateral lower extremities tracking up to the thighs NEURO EXAM: Normal sensorium, cranial nerves II-XII grossly intact, normal speech, no gross weakness of arms, no gross weakness of legs. MEDICAL DECISION MAKING: Patient is a 66-year-old male who presents the ER with above-stated complaint. IV was established blood work was obtained. Is found to be febrile and tachyca rdic. Labs show leukocytosis 21,000. Mild anemia at 11. Platelets were elevated at nearly 500. Sodium slightly low at 134. LFTs bilirubin was unremarkable. Troponin was detectable but negative. Lipase was unremarkable. UA with small amount of ketones. He did have a fair amount of pitting edema in the lower extremities. Chest x-ray with multiple masses throughout. CT abdomen pelvis was performed as well as CTA of the chest. Both showed diffuse metastatic disease. Patient was given IV fluids and IV antibiotics. He was updated bedside. Discussed with hospitalist admitted for further work-up. Triage Nursing notes reviewed. Limited review of prior medical records performed Vital Signs: reviewed and remarkable for tachy Differential diagnosis: Differential diagnoses includes but is not limited to pneumonia, bronchitis, COPD/Asthma exacerbation, pneumothorax, pulmonary embolism, congestive heart failure, acute coronary syndrome ER treatment provided: See below Diagnostics interpreted by me: ECG: Sinus tachycardia rate of 132 Normal axis PVCs present QTC 441 Cardiac Monitoring: An order was placed for continuous cardiac monitoring. The monitor shows a rate of 122 with sinus rhythm. Laboratory studies: As stated above and show below. Imaging studies: CT angio of the chest with diffuse metastatic disease CT abdomen pelvis with diffuse metastatic disease but no other acute pathology Consultation(s): Discussed with Clinton Simon for further evaluation Procedures: none Critical Care: I have personally spent 31 minutes of critical care time in the direct management of this patient. This includes bedside care, interpretation of diagnostic studies, and testing, discussion with consultants, patient, and family members, and other required patient management activities. This 31 mi nutes is in excess of all separately billable procedures. Past Med/Surg History Medical History (Updated 01/10/22 @ 13:36 by Lester Fuentes DO) COPD (chronic obstructive pulmonary disease) Hypertension Surgical History (Updated 12/03/21 @ 05:11 by Christine Bush DO) No significant past surgical history Family History (Updated 12/03/21 @ 05:11 by Christine Bush DO) Other Family history non-contributory Social History Smoking Status: Former smoker Tobacco Type: Cigarettes Hx Alcohol Use: No Hx Substance Use: No Preferred Language: Romanian Communication Ability: Effective Basic Acoustic Analyst Required: No Beliefs That Will Affect Care: None marital status: Single Current Living Situation: Alone Current Living Situation Comment: cousin lives near by Other Information That Helps Us Care for You: No Feels Safe at Home: Yes Assistive Devices: Oxygen - Continuous and Walker Allergies Allergies Allergy/AdvReac Type Severity Reaction Status Date / Time Penicillins Allergy Severe Anaphylaxis Verified 01/10/22 11:37 Home Meds Home Medications Medication Instructions Recorded Confirmed fluticasone 100 mcg-salmeterol 50 1 ea INHALATION BID 12/03/21 01/10/22 mcg/dose blistr powdr for inhalation hydrocodone 10 mg-acetaminophen 1 tab PO TID PRN 12/03/21 01/10/22 325 mg tablet omeprazole 40 mg capsule,delayed 40 mg PO DAILY 12/03/21 01/10/22 release Previous Rx's Medication Instructions Recorded albuterol sulfate 90 mcg/actuation 2 puff INHALATION QID #0 g 12/11/21 aerosol inhaler ipratropium bromide 17 1 puff INHALATION QIDR #1 inhaler 12/11/21 mcg/actuation HFA aerosol inhaler (Atrovent HFA) Oxygen Home #4 l 12/12/21 Results & Data (ED) Vital Signs Vital Signs - 24 hr 01/10/22 09:15 01/10/22 11:00 01/10/22 13:03 Temperature 38.2 C H 37.4 C Temperature Source Oral Oral Pulse Rate 130 H Pulse Rate [Right Finger] 131 H 126 H Pulse Strength Normal Pulse Strength [Right Finger] Normal Respiratory Rate 18 18 25 H Respiratory Effort / Characteristics Non-Labored Non-Labored Respiratory Depth Normal Normal Respiratory Pattern Regular Regular Blood Pressure 184/115 H Blood Pressure [Right Arm] 135/107 H 139/85 Blood Pressure Mean 138 Blood Pressure Mean [Right Arm] 116 103 Blood Pressure Position Lying Pulse Oximetry 94 93 95 Oxygen Delivery Method Nasal Cannula Nasal Cannula Nasal Cannula Oxygen Flow Rate 3 4 4 Sepsis Recent Fever Within 48 Hours No Sepsis New/Unexplained Change in Mental Status No Sepsis Action Taken by Nursing Previously Notified Laboratory Data Result diagrams: 01/10/22 09:04 01/10/22 09:04 Lab Results 01/10/22 01/10/22 01/10/22 Range/Units 09:04 09:04 09:04 WBC 21.22 H (4.8-10.8) K/uL RBC 3.74 L (4.7-6.1) M/uL Hgb 11.0 L (14.0-18.0) g/dL Hct 33.6 L (42-52) % MCV 89.8 (80-100) fL MCH 29.4 (25-34) pg MCHC 32.7 (32-36) g/dL RDW Std Deviation 51.8 H (36.4-46.3) fL RDW Coeff of Severino 15.7 H (11.5-14.5) % Plt Count 499 H (130-400) K/uL MPV 9.2 (7.4-10.4) fL Immature Gran % (Auto) 0.4 % Neut % (Auto) 77.3 % Lymph % (Auto) 5.5 % [place] % (Auto) 16.6 % Eos % (Auto) 0.0 % Baso % (Auto) 0.2 % Neut # (Auto) 16.38 H (1.4-6.5) K/uL Lymph # (Auto) 1.17 L (1.2-3.4) K/uL [place] # (Auto) 3.53 H (0.11-0.59) K/uL Eos # (Auto) 0.01 (0-0.5) K/uL Baso # (Auto) 0.05 (0-0.2) K/uL Immature Gran # (Auto) 0.08 H (0.00-0.02) K/uL Sodium 134 L (136-145) mmol/L Potassium 4.2 (3.5-5.1) mmol/L Chloride 91 L (98-107) mmol/L Carbon Dioxide 34 H (21-32) mmol/L Anion Gap 9 (3-11) BUN 13 (6-23) mg/dl Creatinine 0.71 (0.6-1.4) mg/dl Est Cr Clr Drug Dosing 118.8 ml/min Est GFR ( Amer) 114.9 ml/min Est GFR (Non-Af Amer) 99.2 ml/min BUN/Creatinine Ratio 18.3 (10-20) Glucose 101 H (70-99(Fasting)) mg/dl Lactate (0.4-2.0) mmol/L Calcium 9.1 (8.5-10.1) mg/dl Total Bilirubin 0.8 (0.2-1.0) mg/dl AST 37 (13-39) U/L ALT 30 (7-52) U/L Alkaline Phosphatase 192 H (34-104) U/L Troponin I 0.04 (0-0.04) ng/ml B-Natriuretic Peptide (0-100) pg/ml Total Protein 7.2 (6.0-8.3) gm/dl Albumin 3.3 L (3.4-5.0) gm/dl Globulin 3.9 (2.5-4.0) gm/dl Albumin/Globulin Ratio 0.8 L (0.9-2) Lipase 22 (11-82) U/L Urine Color Yellow Urine Appearance Clear (Clear) Urine pH 8.0 H (4.5-7.5) Ur Specific [place] 1.014 (1.000-1.030) Urine Protein Trace H (Negative) Urine Glucose (UA) Negative (Negative) Urine Ketones Trace H (Negative) Urine Blood Negative (Negative) Urine Nitrite Negative (Negative) Urine Bilirubin Negative (Negative) Urine Urobilinogen Negative (Negative) Ur Leukocyte Esterase Negative (Negative) Urine WBC (Auto) 1-5 (0-5) /hpf Urine RBC (Auto) 0-4 (0-4) /hpf U Hyaline Cast (Auto) 1-5 (0-5) /lpf U Epithel Cells (Auto) 5-10 H (0-5) /lpf Urine Bacteria (Auto) Negative (Negative) SARS-CoV-2, RNA, NAAT (NEGATIVE) 01/10/22 01/10/22 01/10/22 Range/Units 09:23 09:57 10:54 WBC (4.8-10.8) K/uL RBC (4.7-6.1) M/uL Hgb (14.0-18.0) g/dL Hct (42-52) % MCV (80-100) fL MCH (25-34) pg MCHC (32-36) g/dL RDW Std Deviation (36.4-46.3) fL RDW Coeff of Severino (11.5-14.5) % Plt Count (130-400) K/uL MPV (7.4-10.4) fL Immature Gran % (Auto) % Neut % (Auto) % Lymph % (Auto) % [place] % (Auto) % Eos % (Auto) % Baso % (Auto) % Neut # (Auto) (1.4-6.5) K/uL Lymph # (Auto) (1.2-3.4) K/uL [place] # (Auto) (0.11-0.59) K/uL Eos # (Auto) (0-0.5) K/uL Baso # (Auto) (0-0.2) K/uL Immature Gran # (Auto) (0.00-0.02) K/uL Sodium (136-145) mmol/L Potassium (3.5-5.1) mmol/L Chloride (98-107) mmol/L Carbon Dioxide (21-32) mmol/L Anion Gap (3-11) BUN (6-23) mg/dl Creatinine (0.6-1.4) mg/dl Est Cr Clr Drug Dosing ml/min Est GFR ( Amer) ml/min Est GFR (Non-Af Amer) ml/min BUN/Creatinine Ratio (10-20) Glucose (70-99(Fasting)) mg/dl Lactate 1.4 (0.4-2.0) mmol/L Calcium (8.5-10.1) mg/dl Total Bilirubin (0.2-1.0) mg/dl AST (13-39) U/L ALT (7-52) U/L Alkaline Phosphatase (34-104) U/L Troponin I (0-0.04) ng/ml B-Natriuretic Peptide 94 (0-100) pg/ml Total Protein (6.0-8.3) gm/dl Albumin (3.4-5.0) gm/dl Globulin (2.5-4.0) gm/dl Albumin/Globulin Ratio (0.9-2) Lipase (11-82) U/L Urine Color Urine Appearance (Clear) Urine pH (4.5-7.5) Ur Specific [place] (1.000-1.030) Urine Protein (Negative) Urine Glucose (UA) (Negative) Urine Ketones (Negative) Urine Blood (Negative) Urine Nitrite (Negative) Urine Bilirubin (Negative) Urine Urobilinogen (Negative) Ur Leukocyte Esterase (Negative) Urine WBC (Auto) (0-5) /hpf Urine RBC (Auto) (0-4) /hpf U Hyaline Cast (Auto) (0-5) /lpf U Epithel Cells (Auto) (0-5) /lpf Urine Bacteria (Auto) (Negative) SARS-CoV-2, RNA, NAAT NEGATIVE (NEGATIVE) Administered Medications Vancomycin HCl 2,000 mg/ (Sodium Chloride) 540 mls @ 200 mls/hr IV NOW ONE Stop: 02/24/22 14:56 Last Admin: 01/10/22 12:42 Dose: 200 mls/hr Documented by: [id number] Azithromycin 500 mg/ Dextrose 255 mls @ 127.5 mls/hr IV NOW ONE Stop: 01/10/22 14:14 Last Admin: 01/10/22 12:42 Dose: 127.5 mls/hr Documented by: [id number] Discontinued Medications Acetaminophen (Acetaminophen 325 Mg Tab) 650 mg PO NOW STA Stop: 01/10/22 11:40 Last Admin: 01/10/22 11:50 Dose: 650 mg Documented by: [id number] Cefepime HCl (Maxipime) 2,000 mg in 20 mls @ 5 mls/min IV NOW STA; Protocol Stop: 01/10/22 10:07 Last Admin: 01/10/22 11:36 Dose: 5 mls/min Documented by: [id number] Sodium Chloride (Nss 1000ml) 1,000 mls @ 999 mls/hr IV .Q1H1M ONE Stop: 01/10/22 12:39 Last Infusion: 01/10/22 13:01 Dose: 0 mls/hr Documented by: [id number] Admin: 01/10/22 11:50 Dose: 999 mls/hr Documented by: [id number] Ioversol (Optiray 320 125ml) 94 ml IV ONCE ONE Stop: 01/10/22 10:27 Last Admin: 01/10/22 10:30 Dose: 94 ml Documented by: [id number] Imaging Data Radiologist's Impression: Chest X-Ray 01/10/22 09:02 XR chest 1V portable HISTORY: 66 years-old Male Chest Pain atypical chest pain COMPARISON: Chest radiograph and CTA chest 12/03/2021 TECHNIQUE: Portable AP view of the chest FINDINGS: The cardiomediastinal and hilar silhouettes are unchanged. Emphysema. Bilateral innumerable pulmonary metastasis have progressively worsened from the prior study, most pronounced within the lung bases with intermixed airspace opacities. No pneumothorax, large pleural effusion or overt pulmonary edema. Bones of the chest appear grossly intact. IMPRESSION: Extensive pulmonary metastasis have progressively worsened from 12/03/2021 study. ACT 112: Negative or not required by law. The above report was generated using voice recognition software. It may contain grammatical, syntax or spelling errors. Electronically signed by: Berry Silverio M.D. 01/10/2022 9:29 AM Abdomen/Pelvis CT 01/10/22 09:03 CTA OF THE CHEST WITH IV CONTRAST; ABDOMEN AND PELVIS CT WITH IV CONTRAST HISTORY: Chest and abdominal pain with metastasis abd pain TECHNIQUE: Multiaxial CT images of the abdomen and pelvis were performed following the IV administration of 94 cc of Optiray, A dose lowering technique was utilized adhering to the principles of ALARA. CTA of the chest was also obtained with 3-D coronal and sagittal MIPS. All measurements were obtained according to NASCET criteria. COMPARISON STUDY: None. FINDINGS: CTA CHEST: The heart is normal in size. No pericardial effusion. Moderate coronary artery calcifications. Atherosclerosis of the thoracic aorta without aneurysm or dissection. Patency of the imaged great vessels. Limited evaluation of the pulmonary arterial 3 secondary to respiratory motion artifact and contrast bolus timing. No definite pulmonary emboli are identified. CT CHEST: No thyroid nodule. Mildly prominent subcarinal and right hilar lymph nodes. No pathologically enlarged lymph nodes by CT size criteria. Trace pleural effusions. Severe emphysema. Innumerable bibasilar predominant pulmonary metastasis have progressed from comparison measuring up to approximately 1.7 cm within the right lower lobe. The central airways are patent. Limited evaluation of the lungs secondary to respiratory motion artifact. Unremarkable soft tissues. Degenerative changes of the spine and shoulders. No definite destructive bone lesions are identified. CT ABDOMEN/PELVIS: No pneumatosis or pneumoperitoneum. The spleen is unremarkable. Progressively wo rsened metastasis of the adrenal glands measuring up to 2.9 cm on the left and 1.4 cm on the right. The right lesion was previously subcentimeter in size in the left lesion measured 2.1 cm. There is a 2.5 cm suggestive lesion of the pancreatic tail. The pancreas is otherwise unremarkable. Cholelithiasis without CT evidence of acute cholecystitis. Multifocal hepatic metastasis with large lesions within the right hepatic lobe measuring up to 7.4 x 6.7 cm. Is also likely progressed from the prior study. Patent portal vein. Unremarkable kidneys. No hydronephrosis. No enhancing renal mass lesion identified. Moderate bladder wall thickening. Prostamegaly. Atherosclerosis of the aorta without aneurysm. Pathologic 1.3 x 1.1 cm left-sided periaortic lymph node at the level of the kidneys on image 150. 1.2 cm precaval lymph node on image 122. There are numerous enhancing omental and peritoneal nodules within the right abdomen with trace perihepatic ascites. A few nodules noted but the capsule of the right hepatic lobe and cirrhosis of the transverse colon. There is irregular wall thickening and enhancement within the splenic flexure on image 121 series 6 measuring up to approximately 5 cm in length. No bowel obstruction. Mild fecal retention. Unremarkable soft tissues. Degenerative changes of the spine, pelvis and hips. No definite destructive bone lesions identified. IMPRESSION: 1. Unremarkable CTA of the chest. No pulmonary emboli identified. 2. No bowel obstruction. 3. Extensive metastatic disease of the chest, abdomen and pelvis has progressively worsened from 12/03/2021. This includes innumerable pulmonary metastasis, adrenal, hepatic, and lymphatic metastasis with associated omental and peritoneal carcinomatosis. 4. 5 cm area of irregular wall thickening involving the splenic flexure may rep resent the primary malignancy. This could be correlated with colonoscopy. 6. Soft tissue fullness of the pancreatic tail measuring up to 2.5 cm. Primary lesion or pancreatic metastatic focus not excluded. 7. Trace ascites. 8. Cholelithiasis. ACT 112: Negative or not required by law. The above report was generated using voice recognition software. It may contain grammatical, syntax or spelling errors. Electronically signed by: Berry Silverio M.D. 01/10/2022 11:26 AM Chest CTA 01/10/22 10:05 CTA OF THE CHEST WITH IV CONTRAST; ABDOMEN AND PELVIS CT WITH IV CONTRAST HISTORY: Chest and abdominal pain with metastasis abd pain TECHNIQUE: Multiaxial CT images of the abdomen and pelvis were performed following the IV administration of 94 cc of Optiray, A dose lowering technique was utilized adhering to the principles of ALARA. CTA of the chest was also obtained with 3-D coronal and sagittal MIPS. All measurements were obtained according to NASCET criteria. COMPARISON STUDY: None. FINDINGS: CTA CHEST: The heart is normal in size. No pericardial effusion. Moderate coronary artery c alcifications. Atherosclerosis of the thoracic aorta without aneurysm or dissection. Patency of the imaged great vessels. Limited evaluation of the pulmonary arterial 3 secondary to respiratory motion artifact and contrast bolus timing. No definite pulmonary emboli are identified. CT CHEST: No thyroid nodule. Mildly prominent subcarinal and right hilar lymph nodes. No pathologically enlarged lymph nodes by CT size criteria. Trace pleural effusions. Severe emphysema. Innumerable bibasilar predominant pulmonary metastasis have progressed from comparison measuring up to approximately 1.7 cm within the right lower lobe. The central airways are patent. Limited evaluation of the lungs secondary to respiratory motion artifact. Unremarkable soft tissues. Degenerative changes of the spine and shoulders. No definite destructive bone lesions are identified. CT ABDOMEN/PELVIS: No pneumatosis or pneumoperitoneum. The spleen is unremarkable. Progressively worsened metastasis of the adrenal glands measuring up to 2.9 cm on the left and 1.4 cm on the right. The right lesion was previously subcentimeter in size in the left lesion measured 2.1 cm. There is a 2.5 cm suggestive lesion of the pancreatic tail. The pancreas is otherwise unremarkable. Cholelithiasis without CT evidence of acute cholecystitis. Multifocal hepatic metastasis with large lesions within the right hepatic lobe measuring up to 7.4 x 6.7 cm. Is also likely progressed from the prior study. Patent portal vein. Unremarkable kidneys. No hydronephrosis. No enhancing renal mass lesion identified. Moderate bladder wall thickening. Prostamegaly. Atherosclerosis of the aorta without aneurysm. Pathologic 1.3 x 1.1 cm left-sided periaortic lymph node at the level of the kidneys on image 150. 1.2 cm precaval lymph node on image 122. There are numerous enhancing omental and peritoneal nodules within the right abdomen with trace perihepatic ascites. A few nodules noted but the capsule of the right hepatic lobe and cirrhosis of the transverse colon. There is irregular wall thickening and enhancement within the splenic flexure on image 121 series 6 measuring up to approximately 5 cm in length. No bowel obstruction. Mild fecal retention. Unremarkable soft tissues. Degenerative changes of the spine, pelvis and hips. No definite destructive bone lesions identified. IMPRESSION: 1. Unremarkable CTA of the chest. No pulmonary emboli identified. 2. No bowel obstruction. 3. Extensive metastatic disease of the chest, abdomen and pelvis has progressively worsened from 12/03/2021. This includes innumerable pulmonary metastasis, adrenal, hepatic, and lymphatic metastasis with associated omental and peritoneal carcinomatosis. 4. 5 cm area of irregular wall thickening involving the splenic flexure may represent the primary malignancy. This could be correlated with colonoscopy. 6. Soft tissue fullness of the pancreatic tail measuring up to 2.5 cm. Primary lesion or pancreatic metastatic focus not excluded. 7. Trace ascites. 8. Cholelithiasis. ACT 112: Negative or not required by law. The above report was generated using voice recognition software. It may contain grammatical, syntax or spelling errors. Electronically signed by: Berry Silverio M.D. 01/10/2022 11:26 AM Discharge Plan Visit Data Chief Complaint: Illness Stated Complaint: SOB, AB PAIN, LOWER LEG EDEMA ED Provider: Lester Fuentes Discharge Problem: Sepsis, Hypoxia, Metastatic disease, Leukocytosis Forms Stand Alone Forms: [facility] [employer] Prescriptions Prescriptions: No Action hydrocodone-acetaminophen 10-325 mg tablet 1 tab PO TID PRN (Reason: Pain) RF: 0 omeprazole 40 mg capsule,delayed release(DR/EC) 40 mg PO DAILY RF: 0 fluticasone propion-salmeterol 100-50 mcg/dose blister with device 1 ea INHALATION BID RF: 0 Atrovent HFA 17 mcg/actuation Hfa Aerosol Inhaler 1 puff inhalation QIDR Qty: 1 RF: 0 albuterol sulfate 90 mcg/actuation HFA aerosol inhaler 2 puff INHALATION QID Qty: 0 RF: 0 (DME) Oxygen Home Liters Per Minute See Rx Instructions .Route Qty: 4 RF: 0 Referrals Referrals: Avery Seay [Primary Care Provider] - Discharge Problem: Sepsis Qualifiers: Sepsis type: sepsis due to unspecified organism Sepsis acute organ dysfunction status: unspecified Qualified Code(s): A41.9 - Sepsis, unspecified organism Metastatic disease Qualifiers: Area of secondary neoplastic involvement: unspecified site Qualified Code(s): C79.9 - Secondary malignant neoplasm of unspecified site Leukocytosis Qualifiers: Leukocytosis type: unspecified Qualified Code(s): D72.829 - Elevated white blood cell count, unspecified
[2022-01-10 09:22] LABS: Hematocrit (blood only) 33.6 % (42-52); Mean Corpuscular Hemoglobin 29.4 pg (25-34); Mean Corpuscular Hgb Conc 32.7 g/dL (32-36); Mean Corpuscular Volume 89.8 fL (80-100); Mean Platelet Volume 9.2 fL (7.4-10.4); Platelet Count 499 K/uL (130-400); RDW Coefficient of Variation 15.7 % (11.5-14.5); RDW Standard Deviation 51.8 fL (36.4-46.3); Red Blood Count 3.74 M/uL (4.7-6.1); White Blood Count 21.22 K/uL (4.8-10.8)
--- NOTE | 2022-01-10 09:30 | XRay Report ---
XR chest 1V portable HISTORY: 66 years-old Male Chest Pain atypical chest pain COMPARISON: Chest radiograph and CTA chest 12/03/2021 TECHNIQUE: Portable AP view of the chest FINDINGS: The cardiomediastinal and hilar silhouettes are unchanged. Emphysema. Bilateral innumerable pulmonary metastasis have progressively worsened from the prior study, most pronounced within the lung bases w ith intermixed airspace opacities. No pneumothorax, large pleural effusion or overt pulmonary edema. Bones of the chest appear grossly intact. IMPRESSION: Extensive pulmonary metastasis have progressively worsened from 12/03/2021 study. ACT 112: Negative or not required by law. The above report was generated using voice recognition software. It may contain grammatical, syntax o r spelling errors. Electronically signed by: Berry Silverio M.D. 01/10/2022 9:29 AM
[2022-01-10 09:46] LABS: Appearance Urine Clear (Clear); Bacteria Urine Automated Negative (Negative); Basophils # (auto) 0.05 K/uL (0-0.2); Basophils % (auto) 0.2 %; Bilirubin Urine Negative (Negative); Blood Urine Negative (Negative); Color Urine Yellow; Eosinophils # (auto) 0.01 K/uL (0-0.5); Glucose Urine UA Negative (Negative); Immature Granulocytes # (auto) 0.08 K/uL (0.00-0.02); Immature Granulocytes % (auto) 0.4 %; Ketones Urine Trace (Negative); Leukocyte Esterase Urine Negative (Negative); Lymphocytes # (auto) 1.17 K/uL (1.2-3.4); Lymphocytes % (auto) 5.5 %; Monocytes # (auto) 3.53 K/uL (0.11-0.59); Monocytes % (auto) 16.6 %; Neutrophils # (auto) 16.38 K/uL (1.4-6.5); Neutrophils % (auto) 77.3 %; Nitrite Urine Negative (Negative); RBC Urine Automated 0-4 /hpf (0-4); Specific Gravity Urine 1.014 (1.000-1.030); Urobilinogen Urine Negative (Negative)
[2022-01-10 09:50] LABS: Protein Urine Trace (Negative)
[2022-01-10 09:58] LABS: Troponin I 0.04 ng/ml (0-0.04)
[2022-01-10 10:00] LABS: Albumin Globulin Ratio 0.8 (0.9-2); Albumin Level 3.3 gm/dl (3.4-5.0); BUN Creatinine Ratio 18.3 (10-20); Bilirubin,Total 0.8 mg/dl (0.2-1.0); Calcium 9.1 mg/dl (8.5-10.1); Creatinine Clr Calc Pharmacy 118.8 ml/min; Est GFR (African American) 114.9 ml/min; Est GFR (Non-African American) 99.2 ml/min; Globulin 3.9 gm/dl (2.5-4.0); Potassium 4.2 mmol/L (3.5-5.1); Total Protein 7.2 gm/dl (6.0-8.3)
[2022-01-10] MEDS ORDERED: CEFEPIME 2,000 MG/20 ML VIAL IV STA (10:04)
[2022-01-10] MEDS ORDERED: OPTIRAY 320 125ml IV ONE (10:26)
--- NOTE | 2022-01-10 11:28 | CT Scan Report ---
CTA OF THE CHEST WITH IV CONTRAST; ABDOMEN AND PELVIS CT WITH IV CONTRAST HISTORY: Chest and abdominal pain with metastasis abd pain TECHNIQUE: Multiaxial CT images of the abdomen and pelvis were performed following the IV administrat ion of 94 cc of Optiray, A dose lowering technique was utilized adhering to the principles of ALARA. CTA of the chest was also obtained with 3-D coronal and sagittal MIPS. All measurements were obtaine d according to NASCET criteria. COMPARISON STUDY: None. FINDINGS: CTA CHEST: The heart is normal in size. No pericardial effusion. Moderate coronary artery calcifications. Athero sclerosis of the thoracic aorta without aneurysm or dissection. Patency of the imaged great vessels. Limited evaluation of the pulmonary arterial 3 secondary to respiratory motion artifact and contrast bolus timing. No definite pulmonary emboli are identified. CT CHEST: No thyroid nodule. Mildly prominent subcarinal and right hilar lymph nodes. No pathologically enlarge d lymph nodes by CT size criteria. Trace pleural effusions. Severe emphysema. Innumerable bibasilar p redominant pulmonary metastasis have progressed from comparison measuring up to approximately 1.7 cm within the right lower lobe. The central airways are patent. Limited evaluation of the lungs secondar y to respiratory motion artifact. Unremarkable soft tissues. Degenerative changes of the spine and sh oulders. No definite destructive bone lesions are identified. CT ABDOMEN/PELVIS: No pneumatosis or pneumoperitoneum. The spleen is unremarkable. Progressively worsened metastasis of the adrenal glands measuring up to 2.9 cm on the left and 1.4 cm on the right. The right lesion was p reviously subcentimeter in size in the left lesion measured 2.1 cm. There is a 2.5 cm suggestive lesi on of the pancreatic tail. The pancreas is otherwise unremarkable. Cholelithiasis without CT evidence of acute cholecystitis. Multifocal hepatic metastasis with large lesions within the right hepatic lo be measuring up to 7.4 x 6.7 cm. Is also likely progressed from the prior study. Patent portal vein. Unremarkable kidneys. No hydronephrosis. No enhancing renal mass lesion identified. Moderate bladder wall thickening. Prostamegaly. Atherosclerosis of the aorta without aneurysm. Pathologic 1.3 x 1.1 cm left-sided periaortic lymph node at the level of the kidneys on image 150. 1.2 cm precaval lymph nod e on image 122. There are numerous enhancing omental and peritoneal nodules within the right abdomen with trace perihepatic ascites. A few nodules noted but the capsule of the right hepatic lobe and cir rhosis of the transverse colon. There is irregular wall thickening and enhancement within the splenic flexure on image 121 series 6 measuring up to approximately 5 cm in length. No bowel obstruction. Mi ld fecal retention. Unremarkable soft tissues. Degenerative changes of the spine, pelvis and hips. No definite destructiv e bone lesions identified. IMPRESSION: 1. Unremarkable CTA of the chest. No pulmonary emboli identified. 2. No bowel obstruction. 3. Extensive metastatic disease of the chest, abdomen and pelvis has progressively worsened from 12/03. This includes innumerable pulmonary metastasis, adrenal, hepatic, and lymphatic metastasis wit h associated omental and peritoneal carcinomatosis. 4. 5 cm area of irregular wall thickening involving the splenic flexure may represent the primary mal ignancy. This could be correlated with colonoscopy. 6. Soft tissue fullness of the pancreatic tail measuring up to 2.5 cm. Primary lesion or pancreatic m etastatic focus not excluded. 7. Trace ascites. 8. Cholelithiasis. ACT 112: Negative or not required by law. The above report was generated using voice recognition software. It may contain grammatical, syntax o r spelling errors. Electronically signed by: Berry Silverio M.D. 01/10/2022 11:26 AM
--- NOTE | 2022-01-10 11:29 | Electrocardiogram Report ---
Test Reason : Blood Pressure : / mmHG Vent. Rate : 132 BPM Atrial Rate : 132 BPM P-R Int : 148 ms QRS Dur : 082 ms QT Int : 298 ms P-R-T Axes : 061 033 066 degrees QTc Int : 441 ms Sinus tachycardia with frequent PACs, some conducted aberrantly Otherwise normal ECG Confirmed by Uriel Willis ([id number]) on 01/10/2022 11:29:28 AM Referred By: Avery Seay Confirmed By:Melvin Willis
[2022-01-10] MEDS ORDERED: ACETAMINOPHEN 325 MG TAB PO STA (11:39)
[2022-01-10] MEDS ORDERED: SODIUM CHLORIDE 0.9% 1000ML 1,000 ML IV ONE (11:39)
[2022-01-10] MEDS ORDERED: VANCOMYCIN CONSULT ACTIVE PRN (11:58)
--- NOTE | 2022-01-10 12:04 | History & Physical Report ---
Date of Service January 10, 2022 Assessment & Plan (1) Sepsis: Plan: Lactate 1.4. Discontinue further IV fluids given his total body water is elevated and BP stable. Will give fluid boluses as needed to maintain BP. Suspected source bacteremia/pulm although given extent of metastatic spread, his cancer alone may be the sole cause of his tachycardia, WBC and Temp. Broaden coverage to vancomycin/cefepime/azithromycin Follow up blood and sputum cultures Discussed extent of treatment options and patient does not wish central lines or vasopressors, DNI and DNR. Ok for trial of antibiotics at this time. (2) Metastatic disease: Plan: Discussed extensive spread of metastatic disease with unknown primary with patient. Will defer further workup at this stage. Primary goal is for discharge once st able on hospice. (3) COPD (chronic obstructive pulmonary disease): Plan: Lucas QID Will defer solu-medrol currently given minimal wheezing on exam and previously did not tolerate steroids well per patient - low tolerance to start this is breathing is worse however. (4) Acute respiratory failure with hypoxia: Plan: Aim O2 sats > 88% (5) Hypertension: Plan: No longer taking amlodipine or losartan from last admission. Will consider diuretics if continues to be elevated. (6) Bilateral leg edema: Plan: US venous doppler to r/o DVT Suspect from malnutrition related to metastatic cancer as above. Plan: VTE Prophylaxis - Lovenox pending venous doppler Diet - regular Disposition - admit to PCU Admission and Anticipated Discharge Date Admission Date: Jan 10, 2022 History of Present Illness Chief Complaint: Abdominal pain, leg swelling, shortness of breath. Primary Care Provider: Avery Seay Travis Shay is a 66 year old male who presents to the ER with worsening shortness of breath, intermittent abdominal pain and increased swelling in his bilateral lower extremities. He was recently admitted to [facility] from December 03 - due to COVID-19 pneumonia. He reports taking steroids initially as prescribed but they were causing some stomach upset so he eventually decided to stop these after approximately 10 days. He reports his leg swelling, intermittent generalized abdominal pain and shortness of breath have been getting worse for the last 2-3 weeks. He denies any chest pain, orthopnea, or PND. No nausea, vomiting or change in bowel movements. He reports his father on stomach and lung cancer at the age of 6565 years old. In the ER CT C/A/P is concerning for extensive metastatic disease progressively worsening since Dec 03. No infectious etiology seen. However with metastatic cancer, fever, tachycardia and leucocytosis he was started on intravenous cefepime for suspected sepsis. Patient given permission to call his cousin (Debbie) on [phone]. No answer at number provided on admission. Allergies Allergy/AdvReac Type Severity Reaction Status Date / Time Penicillins Allergy Severe Anaphylaxis Verified 01/10/22 11:37 Home Medications Medication Instructions Recorded Confirmed Type fluticasone 100 mcg-salmeterol 50 1 ea INHALATION BID 12/03/21 01/10/22 History mcg/dose blistr powdr for inhalation hydrocodone 10 mg-acetaminophen 1 tab PO TID PRN 12/03/21 01/10/22 History 325 mg tablet omeprazole 40 mg capsule,delayed 40 mg PO DAILY 12/03/21 01/10/22 History release albuterol sulfate 90 mcg/actuation 2 puff INHALATION QID #0 g 12/11/21 01/10/22 Rx aerosol inhaler ipratropium bromide 17 1 puff INHALATION QIDR #1 inhaler 12/11/21 01/10/22 Rx mcg/actuation HFA aerosol inhaler (Atrovent HFA) Oxygen Home #4 l 12/12/21 Rx Past Med/Surg History Medical History (Updated 01/10/22 @ 12:53 by Clinton Simon MD) COPD (chronic obstructive pulmonary disease) Hypertension Surgical History (Updated 12/03/21 @ 05:11 by Christine Bush DO) No significant past surgical history Family History (Updated 12/03/21 @ 05:11 by Christine Bush DO) Other Family history non-contributory Social History Smoking Status: Unknown if ever smoked Tobacco Type: Cigarettes Hx Alcohol Use: No Hx Substance Use: No Preferred Language: Kazakh Communication Ability: Effective Fibre Composite Technician Required: No Beliefs That Will Affect Care: None marital status: Single Current Living Situation: Alone Current Living Situation Comment: cousin lives near by Feels Safe at Home: Yes Assistive Devices: Oxygen - Continuous and Walker Review of Systems Review of Systems: All systems reviewed & are unremarkable except as noted in HPI & below Physical Exam Constitutional: well developed and + acute distress; + not well nourished ENMT: Mouth: oral mucous membranes not dry Neck: trachea midline, no thyromegaly Respiratory: + respiratory distress, + labored breathing, + uses accessory muscles and + prolonged expiratory phase Auscultation: + crackles (throughout) and + wheezes (mild end expiraotry on anterior left); no diminished lung sounds, no rales and no rhonchi Cardiovascular: Rate/Rhythm: regular rhythm and + tachycardic Heart Sounds: no murmur Extremities: + pedal edema (1+ b/l equal to abdomen) and + edema (generalized ansaraca); no calf tenderness Gastrointestinal (Abdomen): Inspection/Auscultation: normal bowel sounds Percussion/Palpation: + abdomen tender (right sided) and abdomen soft; no guarding and abdomen not rigid Skin: no rashes, warm and dry Neurologic: moves all extremities and awake; not confused Psychiatric: A+Ox3, euthymic affect Genitourinary: no CVA tenderness Results & Data Results & Data ([facility]) Vital Signs (Past 12 Hours) Vital Signs Temp Pulse Pulse Resp BP BP Pulse Ox 01/10/22 11:00 131 H 18 135/107 H 93 01/10/22 09:15 38.2 C H 130 H 18 184/115 H 94 Laboratory Results Abnormal lab results 01/10/22 01/10/22 01/10/22 Range/Units 09:04 09:04 09:04 WBC 21.22 H (4.8-10.8) K/uL RBC 3.74 L (4.7-6.1) M/uL Hgb 11.0 L (14.0-18.0) g/dL Hct 33.6 L (42-52) % RDW Std Deviation 51.8 H (36.4-46.3) fL RDW Coeff of Severino 15.7 H (11.5-14.5) % Plt Count 499 H (130-400) K/uL Neut # (Auto) 16.38 H (1.4-6.5) K/uL Lymph # (Auto) 1.17 L (1.2-3.4) K/uL [place] # (Auto) 3.53 H (0.11-0.59) K/uL Immature Gran # (Auto) 0.08 H (0.00-0.02) K/uL Sodium 134 L (136-145) mmol/L Chloride 91 L (98-107) mmol/L Carbon Dioxide 34 H (21-32) mmol/L Glucose 101 H (70-99(Fasting)) mg/dl Alkaline Phosphatase 192 H (34-104) U/L Albumin 3.3 L (3.4-5.0) gm/dl Albumin/Globulin Ratio 0.8 L (0.9-2) Urine pH 8.0 H (4.5-7.5) Urine Protein Trace H (Negative) Urine Ketones Trace H (Negative) U Epithel Cells (Auto) 5-10 H (0-5) /lpf Diagnostic Findings CTA OF THE CHEST WITH IV CONTRAST; ABDOMEN AND PELVIS CT WITH IV CONTRAST HISTORY: Chest and abdominal pain with metastasis abd pain TECHNIQUE: Multiaxial CT images of the abdomen and pelvis were performed following the IV administration of 94 cc of Optiray, A dose lowering technique was utilized adhering to the principles of ALARA. CTA of the chest was also obtained with 3-D coronal and sagittal MIPS. All measurements were obtained according to NASCET criteria. COMPARISON STUDY: None. FINDINGS: CTA CHEST: The heart is normal in size. No pericardial effusion. Moderate coronary artery calcifications. Atherosclerosis of the thoracic aorta without aneurysm or dis section. Patency of the imaged great vessels. Limited evaluation of the pulmonary arterial 3 secondary to respiratory motion artifact and contrast bolus timing. No definite pulmonary emboli are identified. CT CHEST: No thyroid nodule. Mildly prominent subcarinal and right hilar lymph nodes. No pathologically enlarged lymph nodes by CT size criteria. Trace pleural effusions. Severe emphysema. Innumerable bibasilar predominant pulmonary metastasis have progressed from comparison measuring up to approximately 1.7 cm within the right lower lobe. The central airways are patent. Limited evaluation of the lungs secondary to respiratory motion artifact. Unremarkable soft tissues. Degenerative changes of the spine and shoulders. No definite destructive bone lesions are identified. CT ABDOMEN/PELVIS: No pneumatosis or pneumoperitoneum. The spleen is unremarkable. Progressively worsened metastasis of the adrenal glands measuring up to 2.9 cm on the left and 1.4 cm on the right. The right lesion was previously subcentimeter in size in the left lesion measured 2.1 cm. There is a 2.5 cm suggestive lesion of the pancreatic tail. The pancreas is otherwise unremarkable. Cholelithiasis without CT evidence of acute cholecystitis. Multifocal hepatic metastasis with large lesions within the right hepatic lobe measuring up to 7.4 x 6.7 cm. Is also likely progressed from the prior study. Patent portal vein. Unremarkable kidneys. No hydronephrosis. No enhancing renal mass lesion identified. Moderate bladder wall thickening. Prostamegaly. Atherosclerosis of the aorta without aneurysm. Pathologic 1.3 x 1.1 cm left-sided periaortic lymph node at the level of the kidneys on image 150. 1.2 cm precaval lymph node on image 122. There are numerous enhancing omental and peritoneal nodules within the right abdomen with trace perihepatic ascites. A few nodules noted but the capsule of the right hepatic lobe and cirrhosis of the transverse colon. There is irregular wall thickening and enhancement within the splenic flexure on image 121 series 6 measuring up to approximately 5 cm in length. No bowel obstruction. Mild fecal retention. Unremarkable soft tissues. Degenerative changes of the spine, pelvis and hips. No definite destructive bone lesions identified. IMPRESSION: 1. Unremarkable CTA of the chest. No pulmonary emboli identified. 2. No bowel obstruction. 3. Extensive metastatic disease of the chest, abdomen and pelvis has progressively worsened from 12/03/2021. This includes innumerable pulmonary metastasis, adrenal, hepatic, and lymphatic metastasis with associated omental and peritoneal carcinomatosis. 4. 5 cm area of irregular wall thickening involving the splenic flexure may represent the primary malignancy. This could be correlated with colonoscopy. 6. Soft tissue fullness of the pancreatic tail measuring up to 2.5 cm. Primary lesion or pancreatic metastatic focus not excluded. 7. Trace ascites. 8. Cholelithiasis. Medications Administered ER Medications Given: Cefepime 2g IV NSS 1L bolus (500ml given prior to being discontinued) Acetaminophen 650mg PO ECG Indication: SOB/dyspnea Rate (beats per minute): 132 Rhythm: sinus tachycardia Findings: + PAC; no acute ischemic change Comparison ECG Date: from (Dec 03, 2021) Change: the following changes noted Code Status & VTE Plan Code Status DNR/DNI VTE Prophylaxis Plan VTE Prophylaxis will be ordered: Yes PG Care Time/CCT Total # of Minutes Spent Total Time Spent with Patient: Total time spent is greater than 50% in coordination of care (as documented) at patient's floor/unit and/or counseling patient: Coding Level of Care Code 24435 Initial Inpt Care Lvl 3 Diagnoses Metastatic disease C79.9 COPD (chronic obstructive pulmonary disease) J44.9 Acute respiratory failure with hypoxia J96.01 Hypertension I10 Sepsis A41.9 Bilateral leg edema R60.0
[2022-01-10] MEDS ORDERED: AZITHROMYCIN 500 MG in DEXTROSE 5% 250 ML IV ONE (12:15)
[2022-01-10] MEDS ORDERED: VANCOMYCIN HCL 2,000 MG in SODIUM CHLORIDE 0.9% 500 ML IV ONE (12:15)
[2022-01-10] MEDS ORDERED: CONSULT PHARMACY STA (12:23)
--- NOTE | 2022-01-10 14:01 | Ultrasound Report ---
BILATERAL LOWER EXTREMITY VENOUS DOPPLER HISTORY: r/o DVT b/l swollen lower extremities COMPARISON STUDY: None. FINDINGS: There is normal compressibility, flow, and augmentation within the bilateral lower extremit y deep venous systems. IMPRESSION: No DVT within the right or left lower extremity. ACT 112: Negative or not required by law. Electronically signed by: Ernie Lemus M.D. 01/10/2022 2:00 PM
[2022-01-10] MEDS ORDERED: ACETAMINOPHEN 325 MG TAB PO PRN (14:10)
[2022-01-10] MEDS ORDERED: POLYETHYLENE (MIRALAX) 17 GM PACK PO PRN (14:10)
--- NOTE | 2022-01-10 14:31 | Pharmacy Report ---
Pharmacy Vanc AUC Short Note - Date of Service January 10, 2022 - Assessment & Plan Assessment 66 year old M receiving IV Vancomycin, Azithromycin, and Cefepime for treatment of sepsis, pulmonary/bacteremia as suspected source. Recent hospital stay for COVID pneumonia 12/03-12/10/21. Blood cultures pending. Day # 1 of antimicrobial therapy. Plan Vancomycin * Ordered MRSA Nasal swab * AUC/МАРИЯ is the preferred PK/PD target for vancomycin * AUC guided dosing is effective and associated with decreased risk of nephrotoxicity compared to traditional trough targets * Trough level of 18.5 mcg/mL is predicted to achieve target AUC/МАРИЯ of 400-600 mg/L.hr and may be associated with a 15 % risk of nephrotoxicity * Vancomycin 2000 mg IV x 1 load * Vancomycin 1500mg (15.8mg/kg) IV every 12 hours * Trough level to be ordered after MRSA nasal swab results Pharmacy will continue to follow and will adjust dose/frequency as necessary. Thank you.
[2022-01-10] MEDS: ALBUT/IPRATROP 3MG/0.5MG NEB 3 ML VIAL NEB SCH ×2 (14:37→19:36)
[2022-01-10] MEDS: busPIRone 5 MG TAB PO SCH ×2 (16:14→21:25)
[2022-01-10] MEDS: ENOXAPARIN INJ 40 MG/0.4 ML SYR SQ SCH (17:22)
--- NOTE | 2022-01-10 17:45 | CT Scan Report ---
CT OF THE HEAD WITHOUT CONTRAST CLINICAL HISTORY: Left upper extremity weakness. COMPARISON STUDY: No previous studies for comparison. CT DOSE: 1542.37 mGy.cm TECHNIQUE: Helical axial images of the head were obtained without IV contrast. Automated exposure con trol was utilized for the study. A dose lowering technique was utilized adhering to the principles o f ALARA. FINDINGS: No acute intracranial hemorrhage, midline shift or mass effect is present. The ventricular system is unremarkable. The basal cisterns are patent. White matter hypodensity suggests small vessel disease. No extra-axial collections are present. There are no findings to suggest acute dural sinus thrombosis or acute territorial infarct. No significant calvarial abnormalities are present. Visualiz ed portions of the sinuses and mastoid air cells are clear. IMPRESSION: No acute intracranial findings. ACT 112: Negative or not required by law. Electronically signed by: Soren Hernández M.D. 01/10/2022 5:43 PM
--- NOTE | 2022-01-10 17:57 | CT Scan Report ---
MAXILLOFACIAL CT WITHOUT CONTRAST CLINICAL HISTORY: Dental pain. Evaluate for left lower jaw abscess. COMPARISON STUDY: None. TECHNIQUE: A maxillofacial CT was performed without IV contrast. Coronal and sagittal reformats were viewed. Automated exposure control was utilized for the study. A dose lowering technique was utiliz ed adhering to the principles of ALARA. FINDINGS: Note is made of multiple dental caries, including caries of the left second mandibular mola r. There are caries of the left first mandibular molar as well. There is mild periapical lucency of t he left second mandibular molar. No abscess within the adjacent soft tissues is identified on this un enhanced exam. Several teeth are missing. There are multiple dental amalgams. There are periapical [place] cencies associated with bilateral maxillary molars. No soft tissue abscess is identified on this exam ination. Parotid and submandibular glands are unremarkable. Head CT will be reported separately. Muco us retention cyst within the right maxillary sinus is noted. IMPRESSION: 1. Multiple dental caries including caries of the left second mandibular molar with periapical lucenc y. No adjacent soft tissue abscess. 2. Additional sites of odontogenic disease, including periapical lucencies associated with multiple b ilateral maxillary molars. ACT 112: Negative or not required by law. Electronically signed by: Soren Hernández M.D. 01/10/2022 5:55 PM
[2022-01-10] MEDS ORDERED: ALUMINUM/MAGNESIUM SUSP 30 ML UDC PO PRN (18:43)
[2022-01-10] MEDS: ONDANSETRON INJ 2 MG/ML 2 ML VIAL IV PRN (19:29)
[2022-01-10] MEDS: LORazepam 0.5 MG TAB PO PRN (21:25)
[2022-01-10] MEDS: CEFEPIME 2,000 MG in SYRINGE 0 ML IV SCH (21:26)
[2022-01-10] MEDS: VANCOMYCIN HCL 1,500 MG in SODIUM CHLORIDE 0.9% 500 ML IV SCH (21:27)
[2022-01-10] MEDS: CALCIUM CARBONATE 500 MG CHEWABLE TAB PO PRN (22:57)
[2022-01-11] MEDS: CEFEPIME 2,000 MG in SYRINGE 0 ML IV SCH ×3 (05:27→21:00)
[2022-01-11] MEDS: LORazepam 0.5 MG TAB PO PRN (06:01)
[2022-01-11 06:36] LABS: Basophils # (auto) 0.05 K/uL (0-0.2); Basophils % (auto) 0.3 %; Eosinophils # (auto) 0.04 K/uL (0-0.5); Eosinophils % (auto) 0.2 %; Hematocrit (blood only) 31.4 % (42-52); Hemoglobin 10.2 g/dL (14.0-18.0); Immature Granulocytes # (auto) 0.06 K/uL (0.00-0.02); Immature Granulocytes % (auto) 0.3 %; Lymphocytes # (auto) 1.35 K/uL (1.2-3.4); Lymphocytes % (auto) 7.6 %; Mean Corpuscular Hemoglobin 29.5 pg (25-34); Mean Corpuscular Hgb Conc 32.5 g/dL (32-36); Mean Corpuscular Volume 90.8 fL (80-100); Mean Platelet Volume 9.3 fL (7.4-10.4); Monocytes # (auto) 2.52 K/uL (0.11-0.59); Monocytes % (auto) 14.1 %; Neutrophils # (auto) 13.83 K/uL (1.4-6.5); Neutrophils % (auto) 77.5 %; Platelet Count 412 K/uL (130-400); RDW Coefficient of Variation 15.9 % (11.5-14.5); RDW Standard Deviation 52.6 fL (36.4-46.3); Red Blood Count 3.46 M/uL (4.7-6.1); White Blood Count 17.85 K/uL (4.8-10.8)
[2022-01-11 07:06] LABS: Albumin Globulin Ratio 0.8 (0.9-2); Albumin Level 2.7 gm/dl (3.4-5.0); BUN Creatinine Ratio 17.8 (10-20); Bilirubin,Total 0.6 mg/dl (0.2-1.0); Calcium 8.5 mg/dl (8.5-10.1); Creatinine Clr Calc Pharmacy 115.5 ml/min; Est GFR (African American) 113.6 ml/min; Globulin 3.4 gm/dl (2.5-4.0); Potassium 4.3 mmol/L (3.5-5.1); Total Protein 6.1 gm/dl (6.0-8.3)
[2022-01-11] MEDS: ALBUT/IPRATROP 3MG/0.5MG NEB 3 ML VIAL NEB SCH (07:09)
[2022-01-11] MEDS: busPIRone 5 MG TAB PO SCH ×3 (08:39→20:57)
[2022-01-11] MEDS: PANTOprazole 40 MG TAB PO SCH (08:39)
[2022-01-11] MEDS: FLUTICASONE/VILANTEROL 100/25MCG 14 PUFFS/INHALER INH SCH (08:40)
[2022-01-11] MEDS: FAMOTIDINE 20 MG TAB PO SCH ×2 (08:40→20:57)
[2022-01-11] MEDS ORDERED: AZITHROMYCIN 500 MG in DEXTROSE 5% 250 ML IV SCH (09:00)
[2022-01-11] MEDS: CALCIUM CARBONATE 500 MG CHEWABLE TAB PO PRN (09:15)
[2022-01-11] MEDS: ONDANSETRON INJ 2 MG/ML 2 ML VIAL IV PRN (09:16)
[2022-01-11] MEDS: ALBUTEROL HFA 8 GM INHALER INH SCH ×3 (10:53→19:34)
[2022-01-11] MEDS: IPRATROPIUM BROMIDE HFA INHALER INH SCH ×3 (10:53→19:35)
[2022-01-11] MEDS: VANCOMYCIN HCL 1,500 MG in SODIUM CHLORIDE 0.9% 500 ML IV SCH ×2 (11:22→21:00)
[2022-01-11] MEDS: metroNIDAZOLE 500 MG TAB PO SCH ×2 (11:26→20:22)
--- NOTE | 2022-01-11 12:58 | Hospitalist Progress Note ---
Date of Service January 11, 2022 Assessment & Plan (1) Sepsis: Plan: Sepsis, unclear source Admitted with concern for sepsis given fever, tachycardia Placed on empiric Vanco, cefepime, azithromycin on admission Patient does report several weeks of odontogenic pain at the left molar, facial CT with enhancement but no evidence of abscess. On physical exam tender at the molar, without fluctuance or purulence. Anaerobic coverage added with Flagyl as patient is pen allergic Lactate 1.4 Follow CBC, clinically Differential includes primary fever of extensive metastasis Blood culture pending Sputum culture pending No evidence of pneumonia on CTA Leukocytosis downtrending today (2) Metastatic disease: Plan: - CT-H/CTA-C/CT-A/P: No acute intracranial hemorrhage, midline shift or mass effect is present. The ventricular system is unremarkable. The basal cisterns are patent. White matter hypodensity suggests small vessel disease. No extra- axial collections are present. There are no findings to suggest acute dural sinus thrombosis or acute territorial infarct. No significant calvarial abnormalities are present. Visualized portions of the sinuses and mastoid air cells are clear. Multiple dental caries including caries of the left second mandibular molar with periapical lucency. No adjacent soft tissue abscess. Additional sites of odontogenic disease, including periapical lucencies associated with multiple bilateral maxillary molars. Unremarkable CTA of the chest. No pulmonary emboli identified. No bowel obstruction. Extensive metastatic disease of the chest, abdomen and pelvis has progressively worsened from 12/03/2021. This includes innumerable pulmonary metastasis, adrenal, hepatic, and lymphatic metastasis with associated omental and peritoneal carcinomatosis. 5 cm area of irregular wall thickening involving the splenic flexure may represent the primary malignancy. This could be correlated with colonoscopy. Soft tissue fullness of the pancreatic tail measuring up to 2.5 cm. Primary lesion or pancreatic metastatic focus not excluded. Trace ascites. Cholelithiasis. -Patient with extensive lesions of the chest, abdomen, and pelvis worsened from 12/03 concerning for metastatic disease with possible primary malignancy at splenic flexure and into probable lymphatic metastasis with omental and peritoneal carcinomatosis Patient has declined to have additional follow-up for this, once stabilized would like to pursue hospice upon discharge (3) COPD (chronic obstructive pulmonary disease): Plan: No acute COPD exacerbation Continue fluticasone/Vilanterol Albuterol neb as needed 4 times daily (4) Acute respiratory failure with hypoxia: Plan: ? 2/2 acute COPD exacerbation CTA of chest without evidence of pneumonia, no PE appreciated Continue supplemental oxygen COPD treatment, azithromycin as above - Aim O2 sats > 88% (5) Hypertension: Plan: No longer taking amlodipine or losartan from last admission. Will consider diuretics if continues to be elevated. Normotensive 01/11 (6) Bilateral leg edema: Plan: US venous Dopplers with no evidence of DVT Suspect from malnutrition related to metastatic cancer as above. Plan: VTE Prophylaxis - Lovenox Diet - regular Disposition - admit to PCU Admission and Anticipated Discharge Date Admission Date: January 10, 2022 Subjective Seen bedside. Has had left bottom molar pain for several weeks, no foul taste in his mouth. Otherwise denies pain. Chronic bilateral lower extremity edema without recent change. Denies chest pain, chest pressure. Did have a funny feeling in his chest earlier, 2 runs of SVT which spontaneously converted. Denies fever, chills, sweats today. Does feel fatigued. Discussed his CT findings extensively. Patient is aware that he has diffuse lesions throughout his pelvis and abdomen, and a lesion on his sigmoid colon which could represent primary source of her cancer with extended metastatic spread although this has not been biopsy-proven. Patient expresses an understanding of this, and reports his goals are to return home on hospice. He has not followed up on the lung nodules knowing that they might be cancer in his previous diagnosis. Does not wish to have ICU transfer, central lines, vasopressors, CPR, or intubation. He is open to treatment with antibiotics and for potential infection. Review of Systems Review of Systems: All systems reviewed & are unremarkable except as noted in Subjective Physical Exam Physical Exam: General: A&Ox3. Appears fatigued, but nontoxic in no acute distress HEENT: Atraumatic, normocephalic. Left inferior molar tender at gumline, no fluctuance appreciated, no cracking of the tooth, no purulence on exam. Poor dentition. Pulm: Prolonged expiration, bibasilar crackles, end expiratory wheezes left greater than right. No increase in work of breathing. No respiratory distress. Cardiac: Regular, tachycardic, -mrg. Radial pulses intact and symmetrical. Abdominal: Nontender, nondistended, soft. BS present. Results & Data Results & Data ([facility]) Vital Signs (Past 12 Hours) Vital Signs Temp Pulse Pulse Resp BP Pulse Ox 01/11/22 11:12 36.9 C 96 H 18 122/68 93 01/11/22 10:52 105 H 20 95 01/11/22 10:13 120 H 01/11/22 07:09 110 H 18 91 01/11/22 07:02 36.8 C 115 H 20 122/71 90 01/11/22 03:20 37.1 C 113 H 20 125/74 90 PG Care Time/CCT Total # of Minutes Spent Total Time Spent with Patient: Total time spent is greater than 50% in coordination of care (as documented) at patient's floor/unit and/or counseling patient: Coding Level of Care Code 05853 Subseq Hosp Care Lvl 3 Diagnoses Sepsis A41.9 Sepsis acute organ dysfunction status: unspecified Sepsis type: sepsis due to unspecified organism Metastatic disease C79.9 Area of secondary neoplastic involvement: unspecified site COPD (chronic obstructive pulmonary disease) J44.9 Acute respiratory failure with hypoxia J96.01 Hypertension I10 Bilateral leg edema R60.0 (1) Sepsis Sepsis acute organ dysfunction status: unspecified Sepsis type: sepsis due to unspecified organism Qualified Code(s): A41.9 - Sepsis, unspecified organism (2) Metastatic disease Area of secondary neoplastic involvement: unspecified site Qualified Code(s): C79.9 - Secondary malignant neoplasm of unspecified site
--- NOTE | 2022-01-11 14:39 | Electrocardiogram Report ---
Test Reason : Blood Pressure : / mmHG Vent. Rate : 118 BPM Atrial Rate : 118 BPM P-R Int : 148 ms QRS Dur : 084 ms QT Int : 316 ms P-R-T Axes : 055 034 059 degrees QTc Int : 442 ms Sinus tachycardia with Premature atrial complexes Otherwise normal ECG When compared with ECG of 10-JAN-2022 08:52, Premature atrial complexes are now Present Confirmed by Uriel Willis ([id number]) on 01/11/2022 2:39:24 PM Referred By: Avery Seay Confirmed By:Melvin Willis
[2022-01-11] MEDS: HYDROcodone/ACETAMINOPHEN 10/325 TAB PO PRN (20:22)
[2022-01-11] MEDS: ENOXAPARIN INJ 40 MG/0.4 ML SYR SQ SCH (20:58)
[2022-01-11] MEDS ORDERED: MoRPHine SULFATE 2 MG/ML CARP IV STA (21:44)
[2022-01-12] MEDS: LORazepam 0.5 MG TAB PO PRN ×2 (01:51→07:47)
[2022-01-12] MEDS ORDERED: LORazepam 0.5 MG TAB PO STA (02:18)
[2022-01-12] MEDS: HYDROcodone/ACETAMINOPHEN 10/325 TAB PO PRN (03:18)
[2022-01-12] MEDS: CEFEPIME 2,000 MG in SYRINGE 0 ML IV SCH (05:27)
[2022-01-12] MEDS: metroNIDAZOLE 500 MG TAB PO SCH ×2 (05:27→06:35)
[2022-01-12] MEDS ORDERED: NITROGLYCERIN SL 0.4 MG/TAB TAB SL STA (05:53)
[2022-01-12] MEDS ORDERED: FUROSEMIDE 40 MG/4 ML VIAL IV ONE (06:21)
[2022-01-12 06:36] LABS: Basophils # (auto) 0.03 K/uL (0-0.2); Basophils % (auto) 0.2 %; Eosinophils # (auto) 0.14 K/uL (0-0.5); Eosinophils % (auto) 0.7 %; Hematocrit (blood only) 31.7 % (42-52); Hemoglobin 9.9 g/dL (14.0-18.0); Immature Granulocytes # (auto) 0.08 K/uL (0.00-0.02); Immature Granulocytes % (auto) 0.4 %; Lymphocytes # (auto) 1.62 K/uL (1.2-3.4); Lymphocytes % (auto) 8.5 %; Mean Corpuscular Hemoglobin 29.4 pg (25-34); Mean Corpuscular Hgb Conc 31.2 g/dL (32-36); Mean Corpuscular Volume 94.1 fL (80-100); Mean Platelet Volume 9.1 fL (7.4-10.4); Monocytes # (auto) 2.18 K/uL (0.11-0.59); Monocytes % (auto) 11.5 %; Neutrophils # (auto) 14.91 K/uL (1.4-6.5); Neutrophils % (auto) 78.7 %; Platelet Count 369 K/uL (130-400); RDW Standard Deviation 55.1 fL (36.4-46.3); Red Blood Count 3.37 M/uL (4.7-6.1); White Blood Count 18.96 K/uL (4.8-10.8)
[2022-01-12 07:06] LABS: BUN Creatinine Ratio 19.7 (10-20); Calcium 7.9 mg/dl (8.5-10.1); Creatinine Clr Calc Pharmacy 118.8 ml/min; Est GFR (African American) 114.9 ml/min; Est GFR (Non-African American) 99.2 ml/min; Potassium 4.4 mmol/L (3.5-5.1)
[2022-01-12] MEDS: ALBUTEROL HFA 8 GM INHALER INH SCH ×2 (07:34→11:20)
[2022-01-12] MEDS: IPRATROPIUM BROMIDE HFA INHALER INH SCH ×2 (07:34→11:20)
--- NOTE | 2022-01-12 08:16 | XRay Report ---
XR chest 1V portable CLINICAL HISTORY: Atypical chest pain. COMPARISON STUDY: Chest radiograph and chest CT January 10, 2022. FINDINGS: There is no pneumothorax. There is been interval development of a possible small right pleu ral effusion with right basilar opacity. Left basilar opacity is noted. Innumerable pulmonary metasta ses are again noted. Patient is mildly rotated. Slight interstitial thickening. IMPRESSION: 1. Interval development of bibasilar opacities and a possible small right pleural effusion. This coul d reflect atelectasis or an infectious process. 2. Redemonstration of innumerable pulmonary metastases. 3. Pulmonary vascular congestion. ACT 112: Negative or not required by law. Electronically signed by: Soren Hernández M.D. 01/12/2022 8:14 AM
[2022-01-12] MEDS: FAMOTIDINE 20 MG TAB PO SCH (08:43)
[2022-01-12] MEDS: PANTOprazole 40 MG TAB PO SCH (08:43)
[2022-01-12] MEDS: FLUTICASONE/VILANTEROL 100/25MCG 14 PUFFS/INHALER INH SCH (08:44)
[2022-01-12] MEDS: busPIRone 5 MG TAB PO SCH ×2 (08:44→13:21)
[2022-01-12] MEDS ORDERED: AZITHROMYCIN 250 MG TAB PO ONE (09:00)
[2022-01-12] MEDS ORDERED: VANCOMYCIN TROUGH ONE (09:30)
--- NOTE | 2022-01-12 10:40 | Electrocardiogram Report ---
Test Reason : Blood Pressure : / mmHG Vent. Rate : 128 BPM Atrial Rate : 128 BPM P-R Int : 154 ms QRS Dur : 074 ms QT Int : 290 ms P-R-T Axes : 056 063 075 degrees QTc Int : 423 ms Poor data quality, interpretation may be adversely affected Sinus tachycardia with Premature supraventricular complexes Otherwise normal ECG When compared with ECG of 11-JAN-2022 13:43, No significant change was found Confirmed by Trevin Gandara ([id number]) on 01/12/2022 10:39:54 AM Referred By: Avery Seay Confirmed By:Trevin Gandara
[2022-01-12] MEDS ORDERED: LORazepam 2 MG/1 ML VIAL IV PRN (11:29)
[2022-01-12] MEDS ORDERED: LORazepam 0.5 MG TAB PO PRN (11:29)
[2022-01-12] MEDS ORDERED: MoRPHine SULFATE 5 MG/0.25 ML UDP PO PRN (11:29)
[2022-01-12] MEDS: VANCOMYCIN HCL 1,500 MG in SODIUM CHLORIDE 0.9% 500 ML IV SCH (11:36)
[2022-01-12] MEDS ORDERED: ONDANSETRON INJ 2 MG/ML 2 ML VIAL IV PRN (13:19)
[2022-01-12] MEDS ORDERED: ONDANSETRON 4 MG OD TAB SL PRN (13:19)
[2022-01-12] MEDS ORDERED: GLYCOPYRROLATE 0.2 MG/ML VIAL IV PRN (13:19)
--- NOTE | 2022-01-12 14:21 | Death Pronouncement Note ---
Date of Service January 12, 2022 Pronouncement Note Admission Date January 10, 2022 Date and Time of Date of : 01/12/22 Time of : 14:12 Preliminary Cause of (1) Metastatic disease: Area of secondary neoplastic involvement: unspecified site Qualified Code(s): C79.9 - Secondary malignant neoplasm of unspecified site Additional Comments: Acute Hypoxic Respiratory failure due to cancer of unknown primary with extensive pulmonary metastasis Contributing Factors Previous COVID COPD Tobacco Use Summary See discharge documentation Additional Data Attending physician: Cleve Griggs MD
--- NOTE | 2022-01-12 14:25 | Discharge Summary ---
Date of Service January 12, 2022 Admission HPI Per Admitting Provider Travis Shay is a 66 year old male who presents to the ER with worsening shortness of breath, intermittent abdominal pain and increased swelling in his bilateral lower extremities. He was recently admitted to [facility] from December 03 - due to COVID-19 pneumonia. He reports taking steroids initially as prescribed but they were causing some stomach upset so he eventually decided to stop these after approximately 10 days. He reports his leg swelling, intermittent generalized abdominal pain and shortness of breath have been getting worse for the last 2-3 weeks. He denies any chest pain, orthopnea, or PND. No nausea, vomiting or change in bowel movements. He reports his father on stomach and lung cancer at the age of 6565 years old. In the ER CT C/A/P is concerning for extensive metastatic disease progressively worsening since Dec 03. No infectious etiology seen. However with metastatic cancer, fever, tachycardia and leucocytosis he was started on intravenous cefepime for suspected sepsis. Patient given permission to call his cousin (Debbie) on [phone]. No answer at number provided on admission. Principal Diagnosis Metastatic Cancer of Unknown Primary, Suspected Colon Discharge Exam Pupils fixed and dilated No cardiac activity on auscultation, no palpable carotid pulse No spontaneous breathing on auscultation Corneal reflex absent Discharge Data Allergies Allergy/AdvReac Type Severity Reaction Status Date / Time Penicillins Allergy Severe Anaphylaxis Verified 01/10/22 11:37 Consultations 01/10/22 12:09 ED Decision to Admit Stat Ordered Studies 01/10/22 09:03 CT abd pelvis IV con only Stat 01/10/22 10:05 CT angio chest PE protocol Stat 01/10/22 12:28 US venous doppler LE Routine 01/10/22 16:59 CT facial bones wo con Urgent CT head/brain wo con Urgent Hospital Course (1) Metastatic disease: Travis was a 66-year-old male with a history of recent Covid infection and COPD who presented with concern for sepsis of unclear origin given fever and tachycardia. He was placed on vancomycin, cefepime, azithromycin with additional coverage with Flagyl due to history of odontogenic pain. Lactate was 1.4. Blood culture and sputum cultures were ordered. On CT of the head, chest, abdomen and pelvis innumerable pulmonary metastasis, adrenal, hepatic, lymphatic metastasis and associated omental and peritoneal carcinomatosis were appreciated on his CT. A thickening and irregularity of the splenic flexure was also identified which may represent the primary site of malignancy. This was discussed with the patient who reported that he thought this might be coming, and had known previously that he had had pulmonary nodules but had not followed up on this. He reported his goals were to get home on hospice services, but to continue with treatment for potential infection at time of assessment. He did nto clinically improve on broad antibiotics as above, and there was concern for primary process due to malignancy. patient did intermittently have episodes of RVR which spontaneously resolved to sinus tachycardia. He had some likely related pulmonary edema which was treated with diuresis. He did experience fairly rapid clinical deterioration, and goals of care were discussed with him, his closest family member who was a cousin Debbie, and his sister. Patient reported that his goals would be to return home on hospice, however with his clinical decline he did not wish for aggressive measures including CPR, intubation, ICU transfer, or escalation of care. On further discussion 01/12 am, and patient elected to transition to comfort measures only and to discontinue all other treatments including antibiotics except for potential addition fluid medicine to help keep his breathing comfortable, but to focus on overall comfort and quality. Both his sister and Debbie reported that patient had expressed similar goals of care even before his hospitalization, and that wanting to be kept comfortable and not have aggressive measures was consistent with what he had expressed to them on the phone. He was changed to comfort measures only DNR/DNI. He continued to have rapid clinical deterioration throughout the day, and passed at 1412 01/12/2022. - CT-H/CTA-C/CT-A/P: No acute intracranial hemorrhage, midline shift or mass effect is present. The ventricular system is unremarkable. The basal cisterns are patent. White matter hypodensity suggests small vessel disease. No extra- axial collections are present. There are no findings to suggest acute dural sinus thrombosis or acute territorial infarct. No significant calvarial abnormalities are present. Visualized portions of the sinuses and mastoid air cells are clear. Multiple dental caries including caries of the left second mandibular molar with periapical lucency. No adjacent soft tissue abscess. Additional sites of odontogenic disease, including periapical lucencies associated with multiple bilateral maxillary molars. Unremarkable CTA of the chest. No pulmonary emboli identified. No bowel obstruction. Extensive metastatic disease of the chest, abdomen and pelvis has progressively worsened from 12/03/2021. This includes innumerable pulmonary metastasis, adrenal, hepatic, and lymphatic metastasis with associated omental and peritoneal carcinomatosis. 5 cm area of irregular wall thickening involving the splenic flexure may represent the primary malignancy. This could be correlated with colonoscopy. Soft tissue fullness of the pancreatic tail measuring up to 2.5 cm. Primary lesion or pancreatic metastatic focus not excluded. Trace ascites. Cholelithiasis. -Patient with extensive lesions of the chest, abdomen, and pelvis worsened from 12/03 concerning for metastatic disease with possible primary malignancy at splenic flexure and into probable lymphatic metastasis with omental and peritoneal carcinomatosis (3) COPD (chronic obstructive pulmonary disease): Plan: No acute COPD exacerbation Continue fluticasone/Vilanterol Albuterol neb as needed 4 times daily (4) Acute respiratory failure with hypoxia: Plan: ? 2/2 acute COPD exacerbation CTA of chest without evidence of pneumonia, no PE appreciated Continue supplemental oxygen COPD treatment, azithromycin as above - Aim O2 sats > 88% (5) Hypertension: Plan: No longer taking amlodipine or losartan from last admission. Normotensive 01/11 (6) Bilateral leg edema: Plan: US venous Dopplers with no evidence of DVT Suspect from malnutrition related to metastatic cancer as above. VTE Prophylaxis - Lovenox Diet - regular Disposition - admit to PCU Total Time Total Time Spent Total Time Spent (In Minutes): Time spend day of discharge 70 minutes including direct patient care, documentation, review of labs and images, and coordination of care. Discharge Plan Discharge Items Patient Disposition: Other Date/Time: 01/12/22 14:12 Interventions: Discharge Summary Assessment (RN) Last Done: 01/12/22 15:08 Coding Level of Care Code D/C DAY MANAGEMENT >30 MINS Diagnoses Metastatic disease C79.9 Area of secondary neoplastic involvement: unspecified site
== END 2022-01-12 15:09 | disposition expired | DRG 871 ==
LOC: ED 08:44 → SUATTDRO 12:23 → 2S 12:23 → 3E 01-12 10:14